=== PATIENT | female | born 1965 | race Caucasian/White ===

== ENCOUNTER 2018-06-03 21:14 | Observation (INO) | payer MEDICAID, SELFPAY ==
--- NOTE | 2018-06-03 21:16 | EKG12_ITS ---
Test Reason : CP Blood Pressure : / mmHG Vent. Rate : 093 BPM Atrial Rate : 093 BPM P-R Int : 134 ms QRS Dur : 086 ms QT Int : 346 ms P-R-T Axes : 066 -17 052 degrees QTc Int : 430 ms Normal sinus rhythm with sinus arrhythmia Septal infarct , age undetermined Abnormal ECG Confirmed by JAMIE GOMEZ, JAIRO ([id number]), scientific editor YOBANI RODARTE ([id number]) on 06/06/2018 1:13:23 PM Referred By: IRVIN Confirmed By:JAIRO AYALA MD
[2018-06-03 21:17] VITALS: BP 199/102; PULSE 111; RESP 18; TEMP 36.7; O2SAT 100; BMI 32.6
--- NOTE | 2018-06-03 21:18 | NURSING ---
NO OLD EKG
--- NOTE | 2018-06-03 21:21 | RAD_ITS ---
STUDY: X-RAY CHEST REASON FOR EXAM: Female, 52 years old. Chest pain. TECHNIQUE: Single AP portable view of the chest. COMPARISON: None. FINDINGS: Critelli The lungs are clear and expanded. There is no demonstrated pleural abnormality. Normal size heart. Normal mediastinum and lexie. Normal visualized pulmonary arteries. Normal visualized aortic arch and descending thoracic aorta. The thoracic spine is obscured by the mediastinum. Normal visualized ribs, clavicles, and shoulders. There is no demonstrated abnormality of the visualized soft tissue structures of the upper abdomen. RAD/Chest 1 View (Portable) IMPRESSION: No acute cardiopulmonary disease. Electronically Signed: Rafael Jones DO at 21:49 EDT Tel [phone], Service support ,
[2018-06-03 21:27] VITALS: PULSE 95; RESP 18; O2SAT 100
[2018-06-03] MEDS: Aspirin 81 MG TAB.CHEW 324 MG PO (21:28)
--- NOTE | 2018-06-03 21:30 | ED.VISSUMM ---
- ER Visit Summary Date of Service: 06/03/18 Chief Complaint: Chest pain History of Present Illness: The patient is a 52 F history of chronic hypertension for which she is never been placed on any medication. Patient states the last several hours she has had fluttering heartbeat with chest pain. She is never had any prior cardiac workup nor any stress test or heart catheterization. She denies recent exertional chest pain. She has had mild shortness of breath. And also nauseated night associated dizziness. No headache. No radiation to her back. Physical Examination: Middle-aged female. No acute distress. Currently pain-free. Blood pressure is elevated 199/102. Pulse ox 100% on room air no hypoxia. Afebrile. H EENT exam unremarkable. No facial droop. Normal speech. Neck nontender. No JVD. Lungs clear to auscultation bilaterally. Heart regular rhythm rate about 95 no murmur. Chest wall minimal tenderness. No ecchymosis or bruising. No subcu air no crepitance. No bony deformity. Abdomen soft nontender. Normal bowel sounds no peritoneal signs. Patient is moving all 4 extremities. Neurovascular intact. 5 out of 5 equal symmetrical vegetable buncher strength. Dorsi plantar flexion intact. Normal motor strength and sensation both upper and lower extremities. Calves nontender without edema nor cords. Back exam nontender. Neurologically she is awake and alert with no focal motor or sensory deficits. NIH is 0. Test Results: CBC normal. BMP unremarkable. Potassium 3.3. Troponin normal. Portable chest x-ray one view shows no acute abnormality. Normal cardiac silhouette. Normal mediastinum and aorta. Read both by myself and the radiologist. EKG is a sinus rhythm. There is some artifact. There is subtle ST depression in the lateral leads. No signs of acute NV. She is pain-free with EKG. Emergency Department Course and Treatment: Patient with acute on chronic hypertension it has been untreated. She also has atypical chest pain. She will undergo cardiac workup. Also received Lopressor IV for her blood pressure. Treatment Plan: Repeat exam patient is doing well at 2300. Pain-free. Her blood pressure is starting to go back up at 170/100 she will be given the complete dose of Lopressor. I will speak to the hospitalist about admission. Disposition: Admission Impression: Acute chest pain uncertain etiology. Acute on chronic hypertension untreated This note was generated with Dragon dictation software. It may contain incorrect words, spelling, and punctuation that were not noted in review of the chart prior to signing ED Disposition - Plan for ED Patient: Chief Complaint: Chest Pain Referrals: Johny Jimenez [Primary Care Provider] -
--- NOTE | 2018-06-03 21:35 | ED.DCSUM_ITS ---
- ER Visit Summary Date of Service: 06/03/18 Chief Complaint: Chest pain History of Present Illness: The patient is a 52 F history of chronic hypertension for which she is never been placed on any medication. Patient states the last several hours she has had fluttering heartbeat with chest pain. She is never had any prior cardiac workup nor any stress test or heart catheterization. She denies recent exertional chest pain. She has had mild shortness of breath. And also nauseated night associated dizziness. No headache. No radiation to her back. Physical Examination: Middle-aged female. No acute distress. Currently pain- free. Blood pressure is elevated 199/102. Pulse ox 100% on room air no hypoxia. Afebrile. H EENT exam unremarkable. No facial droop. Normal speech. Neck nontender. No JVD. Lungs clear to auscultation bilaterally. Heart regular rhythm rate about 95 no murmur. Chest wall minimal tenderness. No ecchymosis or bruising. No subcu air no crepitance. No bony deformity. Abdomen soft nontender. Normal bowel sounds no peritoneal signs. Patient is moving all 4 extremities. Neurovascular intact. 5 out of 5 equal symmetrical aviation program manager strength. Dorsi plantar flexion intact. Normal motor strength and sensation both upper and lower extremities. Calves nontender without edema nor cords. Back exam nontender. Neurologically she is awake and alert with no focal motor or sensory deficits. NIH is 0. Test Results: CBC normal. BMP unremarkable. Potassium 3.3. Troponin normal. Portable chest x-ray one view shows no acute abnormality. Normal cardiac silhouette. Normal mediastinum and aorta. Read both by myself and the radiologist. EKG is a sinus rhythm. There is some artifact. There is subtle ST depression in the lateral leads. No signs of acute NH. She is pain-free with EKG. Emergency Department Course and Treatment: Patient with acute on chronic hypertension it has been untreated. She also has atypical chest pain. She will undergo cardiac workup. Also received Lopressor IV for her blood pressure. Treatment Plan: Repeat exam patient is doing well at 2300. Pain-free. Her blood pressure is starting to go back up at 170/100 she will be given the complete dose of Lopressor. I will speak to the hospitalist about admission. Disposition: Admission Impression: Acute chest pain uncertain etiology. Acute on chronic hypertension untreated This note was generated with Dragon dictation software. It may contain incorrect words, spelling, and punctuation that were not noted in review of the chart prior to signing ED Disposition - Plan for ED Patient: Chief Complaint: Chest Pain Referrals: Johny Jimenez [Primary Care Provider] -
[2018-06-03] MEDS: Metoprolol Tartrate 5 MG/5 ML Vial IV ×2 (21:43→23:21)
[2018-06-03 21:45] VITALS: BP 198/78; PULSE 81; RESP 16; O2SAT 100
[2018-06-03 21:48] LABS: Absolute Lymphocyte Count 1.97 X10^3/ul (0.83-4.51); Absolute Neutrophil Count 4.9 X10^3/uL (2.0-7.7); Basophil# 0.01 X10^3/uL; Basophil% 0.1 % (0-1); Eosinophil# 0.23 X10^3/uL; Hematocrit 46.7 % (37-47); Hemoglobin 15.2 g/dl (12.0-15.0); Lymphocyte # 1.97 X10^3/ul (4.0); Lymphocyte % 25.8 % (19-41); Mean Corp Hgb Conc 32.5 g/gl (32-36); Mean Corpuscular Hgb 27.8 pg (27.0-32.0); Mean Corpuscular Volume 85.5 fL (81-99); Mean Platelet Vol. 10.5 fl (6.2-12.0); Monocyte# 0.51 X10^3/uL; Monocyte% 6.7 % (0-10); Neutrophil % 64.1 % (47-70); Platelet Count 301 K/mm3 (150-450); RBC Distribution Width CV 15.1 % (11.6-14.6); RBC Distribution Width SD 47.5 fl (35.1-43.9); Red Blood Count 5.46 M/mm3 (4.2-5.4); White Blood Count 7.6 K/mm3 (4.4-11.0)
[2018-06-03 21:49] LABS: POSITIVE COUNT NO; POSITIVE DIFFERENTIAL NO; POSITIVE MORPHOLOGY NO
[2018-06-03 22:06] LABS: Anion Gap 8 (5-15); BUN 12 mg/dL (7-18); BUN/Creat Ratio 17.1 RATIO (10-20); Calcium,Total 9.6 mg/dL (8.5-10.1); Chloride 104 mmol/L (98-107); EST Glomerular Filtration Rate 94 mL/min (>60); Est Glom Filt Rate - Afr Amer 113 mL/min (>60); Estimated Creatinine Clearance 96.99 ml/min; Glucose 111 mg/dL (74-106); Potassium 3.3 mmol/L (3.5-5.1); Sodium Level 140 mmol/L (136-145)
[2018-06-03 22:08] VITALS: O2SAT 99
[2018-06-03 22:25] VITALS: BP 154/86; PULSE 67; RESP 16; O2SAT 97
[2018-06-03 23:18] VITALS: BP 174/89; PULSE 71; RESP 16; O2SAT 100
--- NOTE | 2018-06-03 23:25 | EKG12_ITS ---
Test Reason : REPEAT Blood Pressure : / mmHG Vent. Rate : 060 BPM Atrial Rate : 060 BPM P-R Int : 138 ms QRS Dur : 090 ms QT Int : 406 ms P-R-T Axes : 053 -16 040 degrees QTc Int : 406 ms Normal sinus rhythm Septal WA, age undetermined Confirmed by JAMIE GOMEZ, JAIRO ([id number]), non linear editor YOBANI RODARTE ([id number]) on 06/06/2018 1:14:27 PM Referred By: IRVIN Confirmed By:JAIRO AYALA MD
--- NOTE | 2018-06-03 23:48 | HP.PCM_ITS ---
Problem List (1) Hypertensive urgency Status: Acute (2) Chest pain Status: Acute Qualifiers: Chest pain type: unspecified Qualified Code(s): R07.9 - Chest pain, unspecified (3) HTN (hypertension) Status: Chronic Qualifiers: Hypertension type: essential hypertension Qualified Code(s): I10 - Essential (primary) hypertension (4) Obesity Status: Chronic Qualifiers: Obesity type: due to excess calories Obesity classification: adult class 1 (BMI 30 - 34.9) History of Present Illness Date of Admission: 06/03/18 Chief Complaint: Chest pain The patient is a 52 y/o F w/ PMHx: Obesity, HTN not on medications who notes she has not been to see her physician since of her last child who presents to the [facility] ED on 06/03/18 with history of intermittent waxing and waning chest pressure, tightness in the midsternal region radiating toward the middle of her BL shoulder blades as well as her BL neck and jaw region with associated dyspnea and nausea, rated 5-6/10 when onset, lasting minutes, does not appear to improve with rest starting AM of day of presentation. She notes she has had similar presentation in the past; however, she never had radiation to her neck and jaw at that time and she notes her symptoms at that time improved with relaxation. She notes over the weekend she did not have a healthy diet. She has been attempting to eat healthy and has lost 40 lbs since March. In the ED work-up included T 98.1, heart rate 111, BP 199/102, respiratory rate 18, 100% on room air--> BP 154/86 following IV Lopressor x1 with repeat 174/89, CBC with WBC 7.6, hemoglobin 15.2, platelet 301 without shift, BMP with potassium 3.3, glucose 111, troponin less than 0.015, EKG with nonspecific V3 through V6 findings suspected secondary to artifact with repeat EKG pending upon evaluation of patient, chest x-ray with no acute findings. In the ED patient administered IV Lopressor in addition to aspirin 324 mg p.o. x1. Upon ED evaluation patient denied any chest pain and had been chest pain-free since ED presentation. 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 Smoking Status: Never smoker Tobacco Use: Non-smoker Alcohol: None Drugs: None - *Family History Maternal History Items: - - Patient denies any marked maternal or paternal family history including heart disease, diabetes, high cholesterol. She does note a maternal uncle with history of stroke. Paternal History Items: - - Patient denies any marked maternal or paternal family history including heart disease, diabetes, high cholesterol. Review of Systems Constitutional: Reports: Fatigue. Denies: Chills, Fever, Weight Change HEENT: Denies: Head Aches, Sinus Congestion, Sinus Drainage Cardiovascular: Reports: Chest Pain, Chest Pressure, Chest Tightness. Denies: Light Headedness, Orthopnea, Palpitations, Syncope Respiratory: Reports: Shortness of Breath. Denies: Cough, Shortness of breath at rest, Sputum production Gastrointestinal: Reports: Nausea. Denies: Abdominal Pain, Vomiting Genitourinary: Denies: Dysuria Musculoskeletal: Denies: Joint Pain, Joint Tenderness Skin: Denies: Rash, Wounds Neurological: Denies: Numbness, Tingling, Focal weakness Psychiatric: Denies: Anxiety, Depression, Homicidal Ideations, Suicidal Ideations Hematologic/ Lymphatic: Denies: Easy Bruising, Easy Bleeding VTE Information - Inpt Only VTE Present on Admission: No VTE Mechan Device Prophylaxis: SCD's VTE Pharm Prophylaxis ordered?: Yes Patient Problems: Active and Suspected Problems Chest pain (Acute) Hypertensive urgency (Acute) Subjective: Seated upright in ED bed, no acute distress, denies current chest discomfort. Objective: Physical Examination: General: awake, alert, oriented x 3 and cooperative, seated upright in the ED bed in no apparent distress. Skin: normal color, turgor, no icterus, cyanosis. HEENT: AT/NC, EOMI, PERRLA, MMM, no carotid bruits or JVD noted. Lungs: CTA bilaterally, moderate effort, mild decrease BL bases, no rales, ronchi or wheezing. Heart: Regular rate and rhythm; no gallop, rub audible. Abdomen: soft, obese, NTTP, ND, normal BS, no HSM. Extremities: no cyanosis, clubbing, or edema. Neurological: patient awake, alert, oriented x 3; cognitive function intact; pupils equally reactive to light and accomodation; cranial nerves II-XII grossly normal, moving all 4 extremities, no focal deficits, strength preserved. Psychiatric: affect appears normal, no acute evidence of depressive or anxiety feelings. - Physical Exam Vital Signs Temp Pulse Resp BP Pulse Ox 98.1 F 71 16 174/89 H 100 06/03/18 21:17 06/03/18 23:18 06/03/18 23:18 06/03/18 23:18 06/03/18 23:18 Oxygen Delivery Method Room Air Weight: 214 lb 11.684 oz Body Mass Index (BMI) 32.6 Laboratory Tests Past 24 Hrs 06/03/18 06/03/18 21:37 21:37 WBC 7.6 RBC 5.46 H Hgb 15.2 H Hct 46.7 MCV 85.5 MCH 27.8 MCHC 32.5 RDW 15.1 H RDW Differential 47.5 H Plt Count 301 MPV 10.5 Immature Gran % (Auto) 0.300 Neut % (Auto) 64.1 Lymph % (Auto) 25.8 Calvert % (Auto) 6.7 Eos % (Auto) 3.0 Baso % (Auto) 0.1 Absolute Neuts (auto) 4.9 Absolute Lymphs (auto) 1.97 Total Counted Not Reportable Sodium 140 Potassium 3.3 L Chloride 104 Carbon Dioxide 28.0 Anion Gap 8 BUN 12 Creatinine 0.70 Estim Creat Clear Calc 96.99 Est GFR (MDRD) Af Amer 113 Est GFR (MDRD) Non-Af 94 BUN/Creatinine Ratio 17.1 Glucose 111 H Calcium 9.6 Troponin I < 0.015 Assessment/Plan All Active Problems Chest pain (Acute) Hypertensive urgency (Acute) The patient is a 52 y/o F w/ PMHx: Obesity, HTN not on medications who notes she has not been to see her physician since of her last child who presents to the [facility] ED on 06/03/18 with history of intermittent waxing and waning chest pressure. (1) Chest Pain: EKG in ED nonspecific findings V4 through V6 with repeat EKG pending as suspected artifact, CXR w/ no acute process, initial trop > 0.015. Will admit to PCU, place on a monitored bed to assure no acute myocardial infarction with serial cardiac enzymes and EKGs. Given atypical ST-T changes on EKG although repeat pending and suspected artifact, to be cautious will obtain nuclear treadmill if enzymes remain appropriate. If elevate will discontinue and consult Cardiology. As noted #2, initiating BP regimen. ASA, NG, morphine. FLP in AM w/ statin initiated. Mag pending. (2) Hypertensive Urgency: Notably elevated BP upon presentation, uncontrolled for likely years, no recent PCP evaluations, will initiate on ACEI-HCTZ regimen, monitor BP and further add as needed or increase, PRN hydralazine. (3) Hypokalemia: Admission K+ 3.3, supplementation given, repeat level in AM. Mag pending. (4) Obesity: Weight loss and lifestyle changes encouraged, nutrition consulted. (5) DVT Prophylaxis: SCDs, lovenox. Code Visit OBSV E&M: 13385 Initial observation care L3
[2018-06-04] VITALS (12 sets, daily range): BP systolic 124–165; BP diastolic 72–105; PULSE 66–85; RESP 16; TEMP 36.4–36.7; O2SAT 97–99; BMI 31.3
[2018-06-04] MEDS: hydroCHLOROthiazide 12.5mg 12.5 MG PO (00:51)
[2018-06-04] MEDS: Lisinopril 10 MG Tablet PO ×2 (00:51→02:20)
[2018-06-04] MEDS: 0.9% Normal Saline 1,000 ML 100 ML IV (00:53)
[2018-06-04 01:04] LABS: Magnesium 2.3 mg/dL (1.6-2.6)
[2018-06-04 03:53] LABS: Absolute Lymphocyte Count 1.56 X10^3/ul (0.83-4.51); Absolute Neutrophil Count 4.7 X10^3/uL (2.0-7.7); Basophil# 0.02 X10^3/uL; Basophil% 0.3 % (0-1); Eosinophil# 0.17 X10^3/uL; Eosinophils% 2.5 % (0-5); Hematocrit 42.9 % (37-47); Hemoglobin 14.1 g/dl (12.0-15.0); Lymphocyte # 1.56 X10^3/ul (4.0); Lymphocyte % 22.8 % (19-41); Mean Corp Hgb Conc 32.9 g/gl (32-36); Mean Corpuscular Volume 85.3 fL (81-99); Mean Platelet Vol. 10.6 fl (6.2-12.0); Monocyte# 0.38 X10^3/uL; Monocyte% 5.6 % (0-10); Neutrophil % 68.7 % (47-70); Platelet Count 267 K/mm3 (150-450); Red Blood Count 5.03 M/mm3 (4.2-5.4); White Blood Count 6.8 K/mm3 (4.4-11.0)
[2018-06-04 03:56] LABS: POSITIVE COUNT NO; POSITIVE DIFFERENTIAL NO; POSITIVE MORPHOLOGY NO
[2018-06-04 03:57] LABS: Prothrombin Time (Protime)PT. 13.1 SECONDS (11.7-14.9)
[2018-06-04 03:58] LABS: Partial Thromboplast Time 27.6 Seconds (24.1-36.2)
[2018-06-04 04:08] LABS: Anion Gap 8 (5-15); BUN 9 mg/dL (7-18); BUN/Creat Ratio 15.9 RATIO (10-20); Chloride 109 mmol/L (98-107); Cholesterol 167 mg/dL (200); Creatinine, Serum 0.56 mg/dL (0.55-1.02); EST Glomerular Filtration Rate 120 mL/min (>60); Est Glom Filt Rate - Afr Amer 145 mL/min (>60); Estimated Creatinine Clearance 121.24 ml/min; Glucose 94 mg/dL (74-106); High Density Lipoprotein 52 mg/dL; Potassium 3.7 mmol/L (3.5-5.1); Sodium Level 142 mmol/L (136-145); Triglycerides 78 mg/dL; Very Low Density Lipoprotein 16 mg/dL (5-40)
--- NOTE | 2018-06-04 05:55 | EKG12_ITS ---
Test Reason : ADMISSION EKG Blood Pressure : / mmHG Vent. Rate : 062 BPM Atrial Rate : 062 BPM P-R Int : 138 ms QRS Dur : 088 ms QT Int : 426 ms P-R-T Axes : 056 -15 035 degrees QTc Int : 432 ms Normal sinus rhythm Possible Left atrial enlargement Borderline ECG When compared with ECG of 03-JUN-2018 23:45, MANUAL COMPARISON REQUIRED, DATA IS UNCONFIRMED Confirmed by TAI VILLALTA ([id number]), department editor YOBANI RODARTE ([id number]) on 06/10/2018 11:37:56 AM Referred By: RAFAL Confirmed By:TAI VILLALTA
[2018-06-04] MEDS: Aspirin E.C. 81 MG Tablet PO (06:06)
--- NOTE | 2018-06-04 08:21 | STRESSREP ---
Stress Test Report Date: 06/04/2018 Procedure: Exercise tolerance test/imaging study Indications: Chest pain Consent: Per the patient Procedure: The patient exercised on a Codey protocol for 6 minutes and 30 seconds completing Stage II and 30 seconds of Stage III achieving a peak heart rate of 176 bpm (103 % predicted maximal heart rate) with a peak blood pressure 184/112 mmHg and a peak MET capacity of 7 METs. The baseline ECG demonstrated normal sinus rhythm. The peak exercise ECG demonstrated somatic/motion artifact with no obvious ECG changes. There was an occasional PVC during recovery. The functional capacity was considered average. There was no complaint of chest discomfort during exercise or recovery. The examination was discontinued secondary to fatigue. Impression: 1. Technically adequate (percent predicted maximal heart rate greater than 85%) exercise tolerance test 2. Peak exercise ECG with somatic/motion artifact with no obvious ECG changes 3. There was an occasional PVC during recovery 4. Nuclear images pending Myocardial perfusion imaging study: Technique: The patient was injected with 14.1 mCi of technetium 99m Cardiolite and subsequently rest SPECT Cardiolite nuclear imaging was obtained in the horizontal long, vertical long, and short axis views. The patient exercised on a Codey protocol for 6 minutes and 30 seconds completing Stage II and 30 seconds of Stage III achieving a peak heart rate of 176 bpm (103 % predicted maximal heart rate) with a peak blood pressure 184/112 mmHg and a peak MET capacity of 7 METs. The patient was injected with 44.1 mCi of technetium 99m Cardiolite and subsequently stress SPECT Cardiolite nuclear imaging was obtained in the horizontal long, vertical long, and short axis views. A gated Cardiolite study at peak stress was obtained. Interpretation: Rest and stress SPECT Cardiolite nuclear imaging status post realignment, normalization, and attenuation correction, demonstrates the appearance of relative uniform tracer uptake and myocardial perfusion appearing within normal limits. There is end systolic thickening and brightening. The gated Cardiolite study demonstrates myocardial thickening and inward wall motion. The reported LVEF is 76 %. Impression: 1. Rest and stress SPECT Cardiolite nuclear imaging demonstrate relative uniform tracer uptake and myocardial perfusion appearing within normal limits. 2. The gated Cardiolite study reports an LVEF of 76%. This note was generated with [employer] software. It may contain incorrect words, spelling, and punctuation that were not noted in checking the note before signing.
[2018-06-04] MEDS: 0.9% NaCl Peripheral Flush Adult/Peds IV (09:03)
--- NOTE | 2018-06-04 15:16 | PCM.DC ---
- Discharge Diagnoses Current Active Problems: Current Active and Chronic Problems HTN (hypertension) (Chronic) Obesity (Chronic) Chest pain (Acute) Hypertensive urgency (Acute) You will use the following diet at home:: No restrictions Your food should be the consistency of: Regular Discharge Activity: Return to Normal Activity Call your doctor if you observe: Shortness of breath, Dizziness, Chest pain Allergies/Adverse Reactions: Allergies No Known Allergies Allergy (Verified 06/03/18 21:30) Medications to take at Discharge Lisinopril [Zestril] 20 mg PO DAILY #30 tablet 06/04/18 The following prescriptions were given: Lisinopril [Zestril] 20 mg PO DAILY #30 tablet Primary Care Physician: Johny Jimenez [Primary Care Provider] - Test Results: Will need labs checked in 1-2 weeks, started on LAUREANO-I Test results from this visit will be discussed in further detail at your follow-up appointment, if applicable. Proposed Discharge Date: 06/04/18
--- NOTE | 2018-06-04 15:19 | DCINST_ITS ---
- Discharge Diagnoses Current Active Problems: Current Active and Chronic Problems HTN (hypertension) (Chronic) Obesity (Chronic) Chest pain (Acute) Hypertensive urgency (Acute) You will use the following diet at home:: No restrictions Your food should be the consistency of: Regular Discharge Activity: Return to Normal Activity Call your doctor if you observe: Shortness of breath, Dizziness, Chest pain Allergies/Adverse Reactions: Allergies No Known Allergies Allergy (Verified 06/03/18 21:30) Medications to take at Discharge Lisinopril [Zestril] 20 mg PO DAILY #30 tablet 06/04/18 The following prescriptions were given: Lisinopril [Zestril] 20 mg PO DAILY #30 tablet Primary Care Physician: Johny Jimenez [Primary Care Provider] - Test Results: Will need labs checked in 1-2 weeks, started on LAUREANO-I Test results from this visit will be discussed in further detail at your follow- up appointment, if applicable. Proposed Discharge Date: 06/04/18
--- NOTE | 2018-06-04 15:19 | PCM.DC.SUM ---
Discharge Date and Diagnosis - Problem List Patient Problems: Active and Suspected Problems Chest pain (Acute) Hypertensive urgency (Acute) Date of Admission: 06/03/18 Date of Discharge: 06/04/18 - Primary Discharge Diagnosis Active and Suspected Problems Chest pain (Acute) Hypertensive urgency (Acute) - Secondary Discharge Diagnosis Chronic Problems HTN (hypertension) (Chronic) Obesity (Chronic) Hospital Course and Treatment Operations: None Procedures: Stress test Summary of Care Provided: The patient is a 52 year old F with a remote history of hypertension (has stopped prior antihypertensive meds) who was admitted for chest pain. Patient was noted to have uncontrolled hypertension with systolic blood pressures in the 170s. Patient was started on antihypertensive agents and cardiac enzymes and EKGs were done. Patient's enzymes and EKGs were unremarkable. She underwent a stress test which showed no evidence of reversible ischemia. Patient had no further episodes of chest pain. It was felt that patient's chest pain was likely related to hypertensive urgency. Blood pressure had improved following addition of lisinopril. Lipid panel was unremarkable, requiring no initiation of statin therapy. Patient was otherwise doing well with stable and ready for discharge and had met maximal hospital benefit. She will be discharged home on lisinopril and will follow up with her PCP in 1-2 weeks (will need BMP checked, starting LAUREANO inhibitor). Patient Problems: Active and Suspected Problems Chest pain (Acute) Hypertensive urgency (Acute) - Physical Exam General: Alert, Oriented x3, Cooperative HEENT: Atraumatic, Normocephalic Neck: Supple Lungs: Clear to auscultation, Normal air movement Cardiovascular: Regular rate, No murmurs Abdomen: Bowel Sounds Present, Soft, Non Tender Extremities: No edema, Capillary Refill Less than 3 Seconds Skin: No rashes, No breakdown Musculoskeletal: No Tenderness to Palpation of Joints or Extremities Neurological: Cranial nerves II-XII grossly intact Psych/Mental Status: Normal Affect, Appropriate Vital Signs Temp Pulse Resp BP Pulse Ox 97.8 F 70 16 135/95 H 98 06/04/18 08:48 06/04/18 11:25 06/04/18 08:48 06/04/18 08:48 06/04/18 08:48 Oxygen Delivery Method Room Air Weight: 93.4 kg Body Mass Index (BMI) 31.3 Intake and Output for Last 24 Hours 06/02/18 06/03/18 06/04/18 23:59 23:59 23:59 Intake Total 1461 / 1461 Balance 1461 / 1461 Laboratory Tests Past 24 Hrs 06/03/18 06/03/18 06/03/18 21:37 21:37 21:37 WBC 7.6 RBC 5.46 H Hgb 15.2 H Hct 46.7 MCV 85.5 MCH 27.8 MCHC 32.5 RDW 15.1 H RDW Differential 47.5 H Plt Count 301 MPV 10.5 Immature Gran % (Auto) 0.300 Neut % (Auto) 64.1 Lymph % (Auto) 25.8 Prairie % (Auto) 6.7 Eos % (Auto) 3.0 Baso % (Auto) 0.1 Absolute Neuts (auto) 4.9 Absolute Lymphs (auto) 1.97 Total Counted Not Reportable PT INR APTT Sodium 140 Potassium 3.3 L Chloride 104 Carbon Dioxide 28.0 Anion Gap 8 BUN 12 Creatinine 0.70 Estim Creat Clear Calc 96.99 Est GFR (MDRD) Af Amer 113 Est GFR (MDRD) Non-Af 94 BUN/Creatinine Ratio 17.1 Glucose 111 H Calcium 9.6 Magnesium 2.3 Troponin I < 0.015 Triglycerides Cholesterol LDL Cholesterol VLDL Cholesterol HDL Cholesterol 06/04/18 06/04/18 06/04/18 01:02 03:34 03:34 WBC RBC Hgb Hct MCV MCH MCHC RDW RDW Differential Plt Count MPV Immature Gran % (Auto) Neut % (Auto) Lymph % (Auto) Prairie % (Auto) Eos % (Auto) Baso % (Auto) Absolute Neuts (auto) Absolute Lymphs (auto) Total Counted PT INR APTT Sodium 142 Potassium 3.7 Chloride 109 H Carbon Dioxide 25.0 Anion Gap 8 BUN 9 Creatinine 0.56 Estim Creat Clear Calc 121.24 Est GFR (MDRD) Af Amer 145 Est GFR (MDRD) Non-Af 120 BUN/Creatinine Ratio 15.9 Glucose 94 Calcium 9.0 Magnesium Troponin I < 0.015 < 0.015 Triglycerides 78 Cholesterol 167 LDL Cholesterol 99 VLDL Cholesterol 16 HDL Cholesterol 52 06/04/18 06/04/18 03:34 03:34 WBC 6.8 RBC 5.03 Hgb 14.1 Hct 42.9 MCV 85.3 MCH 28.0 MCHC 32.9 RDW 15.0 H RDW Differential 47.0 H Plt Count 267 MPV 10.6 Immature Gran % (Auto) 0.100 Neut % (Auto) 68.7 Lymph % (Auto) 22.8 Prairie % (Auto) 5.6 Eos % (Auto) 2.5 Baso % (Auto) 0.3 Absolute Neuts (auto) 4.7 Absolute Lymphs (auto) 1.56 Total Counted Not Reportable PT 13.1 INR 1.0 APTT 27.6 Sodium Potassium Chloride Carbon Dioxide Anion Gap BUN Creatinine Estim Creat Clear Calc Est GFR (MDRD) Af Amer Est GFR (MDRD) Non-Af BUN/Creatinine Ratio Glucose Calcium Magnesium Troponin I Triglycerides Cholesterol LDL Cholesterol VLDL Cholesterol HDL Cholesterol Discharge Diet: No Restrictions Discharge Activity: Return to Normal Activity Call your doctor if you observe: Shortness of breath, Dizziness, Chest pain Home Medications: Medications to take at Discharge Lisinopril [Zestril] 20 mg PO DAILY #30 tablet 06/04/18 Following Prescrptions Were Given to Patient: Lisinopril [Zestril] 20 mg PO DAILY #30 tablet Primary Care Physician: Johny Jimenez [Primary Care Provider] - Medical Necessity - Tobacco Use Smoking Status: Never smoker Tobacco Use: Non-smoker Meaningful Use Info Meaningful Use Diagnoses (Choose all that apply): None applicable Code Visit Inpatient E&M: 67504 Disch Hosp
== END 2018-06-04 15:17 | disposition home or self-care (01) ==
LOC: ED 21:48 → PCU 23:32
PROVIDERS: Admitting Provider Family Medicine; Emergency Provider Emergency Medicine; Family Provider Family Medicine; PCP Family Medicine; Visit Provider Family Medicine
DX: R07.89 Other chest pain (principal); I10 Essential (primary) hypertension; R06.02 Shortness of breath; R42 Dizziness and giddiness; I16.0 Hypertensive urgency; E66.9 Obesity, unspecified; Z68.31 Body mass index [BMI] 31.0-31.9, adult; Z71.3 Dietary counseling and surveillance; E87.6 Hypokalemia
CPT/HCPCS: 36415; 71045; 78452; 80048; 80061; 83735; 84484; 85025; 85610; 85730; 93005; 93017; 96361; 96374; 96376; 97802; 99218; 99284; A9500; J7030; A4216; C1751; G0378

== ENCOUNTER 2018-07-22 19:59 | Emergency (ER) | payer MEDICAID, SELFPAY ==
[2018-07-22 20:00] VITALS: BP 183/118; PULSE 89; RESP 16; TEMP 35.8; O2SAT 100
--- NOTE | 2018-07-22 20:34 | EKG12_ITS ---
Test Reason : CHEST OTHER Blood Pressure : / mmHG Vent. Rate : 070 BPM Atrial Rate : 070 BPM P-R Int : 132 ms QRS Dur : 088 ms QT Int : 386 ms P-R-T Axes : 046 -14 061 degrees QTc Int : 416 ms Normal sinus rhythm Normal ECG Confirmed by QIAN GOMEZ, ROGER ([id number]), editor city YOBANI RODARTE ([id number] on 07/25/2018 9:07:24 AM Referred By: QUANG Confirmed By:ROGER LAUGHLIN MD
[2018-07-22 20:37] VITALS: PULSE 77; RESP 18; O2SAT 100
[2018-07-22 20:40] VITALS: BP 157/102
--- NOTE | 2018-07-22 20:55 | RAD_ITS ---
STUDY: X-RAY - UNILATERAL RIBS ( RIGHT ) WITH CHEST REASON FOR EXAM: Female, 53 years old. Pain TECHNIQUE - RIBS: 4 view(s) of the ribs. TECHNIQUE - CHEST: PA COMPARISON: None. FINDINGS - RIBS: Normal visualized ribs without a demonstrated fracture. FINDINGS - CHEST: There is discoid atelectasis or scarring in the right lower lobe.. There is no demonstrated pleural abnormality. Normal size heart. Normal mediastinum and lexie. Normal visualized pulmonary arteries. Normal visualized aortic arch and descending thoracic aorta. Normal visualized thoracic spine. Normal visualized ribs, clavicles, and shoulders. There is no demonstrated abnormality of the visualized soft tissue structures of the upper abdomen. RAD/Ribs Uni Min 3V w/PA Chest IMPRESSION: RIBS: Normal x-ray examination of the ribs. CHEST: Minor discoid atelectasis or scarring at the right lung base. Electronically Signed: Vignesh Noe MD at 21:37 EST , Service support ,
[2018-07-22 20:57] LABS: Absolute Lymphocyte Count 1.52 X10^3/ul (0.83-4.51); Absolute Neutrophil Count 5.6 X10^3/uL (2.0-7.7); Basophil# 0.02 X10^3/uL; Basophil% 0.3 % (0-1); Eosinophil# 0.18 X10^3/uL; Eosinophils% 2.4 % (0-5); Hematocrit 43.3 % (37-47); Hemoglobin 14.1 g/dl (12.0-15.0); Lymphocyte # 1.52 X10^3/ul (4.0); Lymphocyte % 19.9 % (19-41); Mean Corp Hgb Conc 32.6 g/gl (32-36); Mean Corpuscular Hgb 28.3 pg (27.0-32.0); Mean Corpuscular Volume 86.9 fL (81-99); Mean Platelet Vol. 9.6 fl (6.2-12.0); Monocyte# 0.31 X10^3/uL; Monocyte% 4.1 % (0-10); Neutrophil # 5.59 X10^3/uL (2.7-7.7); Neutrophil % 73.2 % (47-70); POSITIVE COUNT NO; POSITIVE DIFFERENTIAL NO; POSITIVE MORPHOLOGY NO; Platelet Count 303 K/mm3 (150-450); RBC Distribution Width CV 15.4 % (11.6-14.6); RBC Distribution Width SD 49.1 fl (35.1-43.9); Red Blood Count 4.98 M/mm3 (4.2-5.4); White Blood Count 7.6 K/mm3 (4.4-11.0)
[2018-07-22 21:10] LABS: Anion Gap 5 (5-15); BUN 23 mg/dL (7-18); BUN/Creat Ratio 24.4 RATIO (10-20); Calcium,Total 9.1 mg/dL (8.5-10.1); Chloride 106 mmol/L (98-107); Creatinine, Serum 0.94 mg/dL (0.55-1.02); EST Glomerular Filtration Rate 67 mL/min (>60); Est Glom Filt Rate - Afr Amer 81 mL/min (>60); Estimated Creatinine Clearance 71.42 ml/min; Glucose 104 mg/dL (74-106); Potassium 3.6 mmol/L (3.5-5.1); Sodium Level 140 mmol/L (136-145)
--- NOTE | 2018-07-22 22:20 | ED.DCSUM_ITS ---
- ER Visit Summary Date of Service: 07/22/18 Chief Complaint: Chest pain History of Present Illness: The patient is a 53 F presenting for evaluation secondary chest pain. Patient reports that since yesterday she has been getting intermittent shooting pains in her right lower chest. States this was not ass ociated with any sort of injury. She reports that it is not this early worse with exertion, but will come and go intermittently and sometimes associated with different positions and movement. Patient states that the pain is worse both with palpation and breathing as well. She denies being short of breath. She denies any nausea diaphoresis or lightheadedness. She is never had any prior similar episodes in the past. Patient's only cardiovascular risk factor is hypertension, and she denies any PE risk factors. Physical Examination: Vital signs are within normal limits, patient is afebrile. General: Patient is well-nourished well-developed and in no acute distress. Head: Normocephalic, atraumatic Eyes: Pupils equal round and reactive bilaterally, extra occular motion intact bialterally ENT: Moist mucous membranes Neck: Supple, no lymphadenopathy, no JVD, no meningismus CVS: Heart regular rate and rhythm, no murmurs, rubs or gallops, radial pulses 2+ bilaterally Resp: Respirations nondistressed, lung sounds clear bilaterally, minimal tenderness to palpation of the right anterior chest Abdomen: Soft, nontender, nondistended, no palpable masses, normal bowel sounds Back: Nontender Extremities: Nontender, atraumatic, active full range of motion, no peripheral edema Skin: warm, no rashes, no petechia Neuro: Alert and oriented x 4, CN 2-12 intact, no lateralizing neurological defecits Psyc: Normal affect Test Results: EKG demonstrates sinus rhythm of [address] segments and normal T waves. CBC chemistry troponin unremarkable. PA lateral chest x- ray per radiology shows some minimal basilar scarring in the right base, but no evidence of acute pathology. Emergency Department Course and Treatment: Patient presented for evaluation secondary to chest pain. Her pain seems rather atypical for something cardiac, and she is PERC negative. Her workup as noted above is negative. Her heart score is 1. I believe she safely can discharge. She will follow-up with primary care. Disposition: Discharge Impression: 1. Chest wall pain This note was generated with [employer] dictation software. It may contain incorrect words, spelling, and punctuation that were not noted in review of the chart prior to signing ED Disposition - Plan for ED Patient: Disposition: Home or Assisted Living Chief Complaint: Chest Other Diagnosis: Chest wall pain Instructions: ED Strain Chest Wall Referrals: Johny Jimenez [Primary Care Provider] - 3-5 Days if not improving
[2018-07-22 22:34] VITALS: BP 150/89; PULSE 69; RESP 14; O2SAT 100
--- NOTE | 2018-07-22 22:34 | ED.RN ---
pt educated on written and verbal discharge instructions. pt verbalizes understanding and denies any further questions. i/v d/c and covered with 2x2 gauze. angio intact. pt dresses self and ambulates out of dept alnoe without assitance needed from staff.
--- OUTSIDE RECORDS SUMMARY | 2018-09-08 00:19 | XMS RPT_ITS ---
:1965 Author Organization OHIP Care Team Providers Name Role Phone Johny Jimenez Primary Care Unavailable Deniz Jauregui Attending Unavailable Johny Jimenez Primary Care Unavailable Edinson Rivas Attending Unavailable Johny Jimenez Primary Care Unavailable White, July Admitting Unavailable [place], Rsoy Attending Unavailable White, July Admitting Unavailable White, July Attending Unavailable Johny Jimenez Primary Care Unavailable White, July Consulting Unavailable White, July Admitting Unavailable [place], Rosy Attending Unavailable Johny Jimenez Primary Care Unavailable [place], Rosy Consulting Unavailable Johny Jimenez Primary Care Unavailable Brad Vega Attending Unavailable Jeovany Ayala Attending Unavailable White, July Referring Unavailable PROBLEMS PROBLEMS DATE TYPE CONDITION / CODE ATTENDING STATUS SOURCE 06/23/2018 Unknown R07.9 - Chest Jeovany Ayala Active Barrera pain, unspecified Community / R07.9(ICD-10) Hospital Repository PROCEDURES PROCEDURES No Procedure Records FoundRESULTS RESULTS Observed: 08/14/2018 Status: F Source: [place] URINE CULTURE 8:42 PM [facility] REPOSITORY Sp. Request/Comment: - Specimen received in preservative Culture Result - No growth (<1,000 CFU/ml) Performed By: #### URCUL #### [facility] [address] [place], [place] [address] CNOV Observed: 08/14/2018 Status: COMPLETED Source: [place] 8:15 PM [facility] REPOSITORY Office Visit (UCWSTR) NAZARIO GE ([id number]) 1965 F Date Time Provider Department 08/14/18 8:15 PM BELIA BERRIOS (GIOVANNI) WSTR During your visit today, we recorded the following information about you: Pulse Respiration Weight 76/minute 16/minute 90.2 kg Belia Berrios APRN.CNP 08/14/2018 8:56 PM Signed Subjective HPI HPI Nazario Ge is a 53 year old female who presents today for suture removal from left thumb. Denies redness, swelling, exudates. Patient has been having urinary frequency, breast tenderness, and food cravings for past week. Patient concerned for . Has not had period for over 1.5 years. Denies urinary burning. .Patient presents with: Suture Removal: 2 on inner thumb of LEFT hand No past medical history on file. No past surgical history on file. ALLERGIES Patient has no known allergies. MEDICATIONS No prescriptions on file. No family history on file. Social History Substance Use Topics - Smoking status: Never Smoker - Smokeless tobacco: Never Used - Alcohol use Not on file Review of Systems Constitutional: Negative for chills, fever and weight loss. Respiratory: Negative for cough, shortness of breath and wheezing. Cardiovascular: Negative for chest pain and palpitations. Gastrointestinal: Negative for abdominal pain, blood in stool, constipation, diarrhea, heartburn, melena, nausea and vomiting. Genitourinary: Positive for dysuria, frequency and urgency. Negative for flank pain and hematuria. Objective Pulse 76, resp. rate 16, weight 90.2 kg (198 lb 12.8 oz). Physical Exam Constitutional: She is well-developed, well-nourished, and in no distress. Non-toxic appearance. She does not have a sickly appearance. No distress. Cardiovascular: Normal rate, regular rhythm and normal heart sounds. Pulmonary/Chest: Effort normal and breath sounds normal. Abdominal: Soft. Normal appearance and bowel sounds are normal. There is no hepatosplenomegaly. There is no tenderness. There is no CVA tenderness. Musculoskeletal: Hands: Skin: Skin is warm and dry. ASSESSMENT/PLAN: 1. Urinary frequency - ICD9: 788.41, ICD10: R35.0 (primary diagnosis) Acute UA negative - Send urine for culture F/u with pcp or obgyn for concerns, do not suspect, has been in menopause for 1.5 years - Patient education for prevention given - URINE CULTURE - HCG QUAL UR B/O 2. Visit for suture removal - ICD9: V58.32, ICD10: Z48.02 Keep clean/covered Follow up if signs of infection occur Prescription instructions reviewed with patient as applicable. Patient advised if symptoms do not improve or if symptoms worsen sooner, to contact the office for further evaluation by their primary care physician. Potential red flag symptoms discussed with the patient. Reviewed appropriate action plan to take if red flag symptoms occur. Patient agreeable to treatment plan. Belia Berrios APRN.GIOVANNI Berrios APRN.GIOVANNI 08/14/2018 8:34 PM Addendum URINARY TRACT INFECTION GENERAL INFORMATION: A urinary tract infection (UTI) is an infection of the bladder or kidneys. A bladder infection, called cystitis, is the more common type. If the infection travels up to the kidneys, it is called pyelonephritis. This can be more serious. UTIs are a common problem in women. Having sexual relations can leave a woman more susceptible to developing a UTI, but it is not sexually transmitted like gonorrhea. Some women have a problem with recurrent UTIs. INSTRUCTIONS: 1. Your doctor prescribed an antibiotic to treat the UTI. Take exactly as directed. Be sure to take all the medication prescribed, even if your symptoms disappear. If you stop treatment early, the infection may not be fully treated and the symptoms could come back again. 2. Get plenty of rest. You may take acetaminophen for fever and aches. 3. Drink 6 to 8 glasses of fluids, especially water, every day. This helps wash out germs from your urinary tract. Cranberry juice or other sources of vitamin C are also good for you. 4. Urinate often, as soon as you feel the urge. Empty your bladder completely. Urinate before and after you have sex. 5. Always wipe from front to back after going to the bathroom. This pushes germs away from your bladder, rather than towards it. 6. Showers are better than baths, and you should wash the genital area daily. Avoid bubble bath or bath oils if you do take a bath. 7. Wear underwear and pantyhose with a cotton crotch. CONTACT YOUR DOCTOR: 1. You have a temperature over 102F (38.8C) after 48 hours on medication. 2. You notice blood in your urine. 3. Your symptoms don't improve in 2 days. 4. You develop nausea, vomiting, diarrhea, or a rash. 5. You develop new or unexplained symptoms. These may be related to the medication you are taking. 6. Your symptoms return after you finish treatment. RETURN TO THE EMERGENCY DEPARTMENT IF: You develop vomiting and can't keep your medication or fluids down. ASSESSMENT/PLAN: 1. Urinary frequency - ICD9: 788.41, ICD10: R35.0 (primary diagnosis) acute - Send urine for culture - Patient education for prevention given 2. Visit for suture removal - ICD9: V58.32, ICD10: Z48.02 Keep clean/covered Follow up if signs of infection occur Referring Provider: SELF [[id number]] Allergies As of Date: 08/14/2018 (No Known Allergies) Date Reviewed: 08/14/2018 Reviewed by: Belia (Shena Berrios - Fully Assessed Reason for Visit: Suture Removal [105] Cmt: 2 on inner thumb of LEFT hand Primary Visit Diagnosis:Urinary frequency [R35.0] Other Visit Diagnosis:Visit for suture removal [Z48.02] Order(s):UA DIP, URINE (POC) [2719417] Order #: [id number] #:[id number] URINE CULTURE [SQURCUL] Order #: [id number] HCG QUAL UR B/O [3089402] Order #: [id number] Problem List As Of Date: 08/14/2018 (None) Other instructions from your clinician: URINARY TRACT INFECTION GENERAL INFORMATION: A urinary tract infection (UTI) is an infection of the bladder or kidneys. A bladder infection, called cystitis, is the more common type. If the infection travels up to the kidneys, it is called pyelonephritis. This can be more serious. UTIs are a common problem in women. Having sexual relations can leave a woman more susceptible to developing a UTI, but it is not sexually transmitted like gonorrhea. Some women have a problem with recurrent UTIs. INSTRUCTIONS: 1. Your doctor prescribed an antibiotic to treat the UTI. Take exactly as directed. Be sure to take all the medication prescribed, even if your symptoms disappear. If you stop treatment early, the infection may not be fully treated and the symptoms could come back again. 2. Get plenty of rest. You may take acetaminophen for fever and aches. 3. Drink 6 to 8 glasses of fluids, especially water, every day. This helps wash out germs from your urinary tract. Cranberry juice or other sources of vitamin C are also good for you. 4. Urinate often, as soon as you feel the urge. Empty your bladder completely. Urinate before and after you have sex. 5. Always wipe from front to back after going to the bathroom. This pushes germs away from your bladder, rather than towards it. 6. Showers are better than baths, and you should wash the genital area daily. Avoid bubble bath or bath oils if you do take a bath. 7. Wear underwear and pantyhose with a cotton crotch. CONTACT YOUR DOCTOR: 1. You have a temperature over 102F (38.8C) after 48 hours on medication. 2. You notice blood in your urine. 3. Your symptoms don't improve in 2 days. 4. You develop nausea, vomiting, diarrhea, or a rash. 5. You develop new or unexplained symptoms. These may be related to the medication you are taking. 6. Your symptoms return after you finish treatment. RETURN TO THE EMERGENCY DEPARTMENT IF: You develop vomiting and can't keep your medication or fluids down. ASSESSMENT/PLAN: 1. Urinary frequency - ICD9: 788.41, ICD10: R35.0 (primary diagnosis) acute - Send urine for culture - Patient education for prevention given 2. Visit for suture removal - ICD9: V58.32, ICD10: Z48.02 Keep clean/covered Follow up if signs of infection occur Encounter Status:Closed by BELIA BERRIOS CNP on 08/14/18 PROGRESS Observed: 08/14/2018 Status: COMPLETED Source: [place] 8:10 PM [facility] REPOSITORY HNO ID: [id number] Author: Belia (Giovanni) Service: (none) Author Type: Nurse Practitioner Type: Progress Notes Filed: 08/14/2018 8:56 PM Note Text: Subjective HPI HPI Nazario Ge is a 53 year old female who presents today for suture removal from left thumb. Denies redness, swelling, exudates. Patient has been having urinary frequency, breast tenderness, and food cravings for past week. Patient concerned for . Has not had period for over 1.5 years. Denies urinary burning. .Patient presents with: Suture Removal: 2 on inner thumb of LEFT hand No past medical history on file. No past surgical history on file. ALLERGIES Patient has no known allergies. MEDICATIONS No prescriptions on file. No family history on file. Social History Substance Use Topics - Smoking status: Never Smoker - Smokeless tobacco: Never Used - Alcohol use Not on file Review of Systems Constitutional: Negative for chills, fever and weight loss. Respiratory: Negative for cough, shortness of breath and wheezing. Cardiovascular: Negative for chest pain and palpitations. Gastrointestinal: Negative for abdominal pain, blood in stool, constipation, diarrhea, heartburn, melena, nausea and vomiting. Genitourinary: Positive for dysuria, frequency and urgency. Negative for flank pain and hematuria. Objective Pulse 76, resp. rate 16, weight 90.2 kg (198 lb 12.8 oz). Physical Exam Constitutional: She is well-developed, well-nourished, and in no distress. Non-toxic appearance. She does not have a sickly appearance. No distress. Cardiovascular: Normal rate, regular rhythm and normal heart sounds. Pulmonary/Chest: Effort normal and breath sounds normal. Abdominal: Soft. Normal appearance and bowel sounds are normal. There is no hepatosplenomegaly. There is no tenderness. There is no CVA tenderness. Musculoskeletal: Hands: Skin: Skin is warm and dry. ASSESSMENT/PLAN: 1. Urinary frequency - ICD9: 788.41, ICD10: R35.0 (primary diagnosis) Acute UA negative - Send urine for culture F/u with pcp or obgyn for concerns, do not suspect, has been in menopause for 1.5 years - Patient education for prevention given - URINE CULTURE - HCG QUAL UR B/O 2. Visit for suture removal - ICD9: V58.32, ICD10: Z48.02 Keep clean/covered Follow up if signs of infection occur Prescription instructions reviewed with patient as applicable. Patient advised if symptoms do not improve or if symptoms worsen sooner, to contact the office for further evaluation by their primary care physician. Potential red flag symptoms discussed with the patient. Reviewed appropriate action plan to take if red flag symptoms occur. Patient agreeable to treatment plan. Belia Berrios APRN.[facility] EMERGENCY DEPARTMENT Observed: 08/06/2018 Status: F Source: [place] SUMMARY 10:[address] [facility] REPOSITORY [facility] Medical Records Department [address] [place] [address] Emergency Department Summary 08/06/182011 MR#: [id number] Acct: [id number] Name: NAZARIO GE Rep #: [id number] : 1965 53 From: Brad Vega MD PCP: Johny Jimenez MD Status: DEP ER - ER Visit Summary Date of Service: 08/06/18 Chief Complaint: Left thumb laceration History of Present Illness: The patient is a 53 F who presents with a left thumb laceration. She was seen here earlier today after she cut her thumb trying to cut a croissant. The ED physician at that time repaired with skin glue. However it opened up when she got home. She denies any bleeding at this time. Physical Examination: Vital signs reviewed. There is a 1.5 cm laceration on the base of the left thumb on the palm side. There is no bleeding at this time Test Results: None performed Emergency Department Course and Treatment: Patient had laceration repair. 1 cc lidocaine was used to anesthetize the area. 2, 4 0 simple nylon sutures were placed. She will have these out in 7-10 days Treatment Plan: [] Disposition: Discharge Impression: Left thumb laceration, 1.5 cm Laceration repair This note was generated with [employer] dictation software. It may contain incorrect words, spelling, and punctuation that were not noted in review of the chart prior to signing ED Disposition - Plan for ED Patient: Disposition: Home or Assisted Living Chief Complaint: Laceration Instructions: ED Laceration All Referrals: Johny Jimenez [Primary Care Provider] - What to do if you have Problems For any increased pain, shortness of breath, bleeding, nausea or vomiting, chest pain, or any unexpected problems, contact your Primary Care Provider. Call [facility] ([phone]) or report to the closest Emergency Room. Call 911 if necessary. 08/06/182204 <Electronically signed by Brad Vega MD> Date Brad Vega MD Cosigner Signature (If Indicated): Date CC: Johny Jimenez MD DISCHARGE INSTRUCTION Observed: 08/06/2018 Status: F Source: [place] 8:[address] [facility] REPOSITORY [facility] Medical Records Department [address] [place] [address] Discharge Instruction 08/06/182011 MR#: [id number] Acct: [id number] Name: NAZARIO GE Rep #: [id number] : 1965 53 From: Brad Vega MD PCP: Johny Jimenez MD Status: REG ER ED Disposition - Plan for ED Patient: Disposition: Home or Assisted Living Chief Complaint: Laceration Instructions: ED Laceration All Referrals: Johny Jimenez [Primary Care Provider] - What to do if you have Problems For any increased pain, shortness of breath, bleeding, nausea or vomiting, chest pain, or any unexpected problems, contact your Primary Care Provider. Call [facility] ([phone]) or report to the closest Emergency Room. Call 911 if necessary. 08/06/182011 <Electronically signed by Brad Vega MD> Date Brad Vega MD Cosigner Signature (If Indicated): Date CC: Johny Jimenez MD EMERGENCY DEPARTMENT Observed: 08/06/2018 Status: F Source: [place] SUMMARY 1:[address] [facility] REPOSITORY [facility] Medical Records Department [address] [facility] [place] [address] Emergency Department Summary 08/06/18 1334 MR#: [id number] Acct: [id number] Name: NAZARIO GE Rep #: [id number] : 1965 53 From: Edinson Rivas MD PCP: Johny Jimenez MD Status: REG ER - ER Visit Summary Date of Service: 08/06/18 Chief Complaint: Laceration base left thumb History of Present Illness: The patient is a 53 F who is right- hand dominant presents a laceration that is 1.5 cm base of the left thumb volar surface. This occurred 2 hours prior to presentation. She denies paresthesia, anesthesia motors. She has no other complaints. Physical Examination: 1.5 cm laceration. Patient is able to AB duct, 80 duct, flex and extend the left thumb. Two-point determination normal. Capillary refill is normal. No other evidence of trauma. There is no point bone tenderness. Test Results: None Emergency Department Course and Treatment: Clean wound and Dermabond after discussion regarding options Treatment Plan: Dermabond Disposition: Appropriate home-going instructions, stable and improved Impression: 1.5 cm laceration left thumb This note was generated with [employer] software. It may contain incorrect words, spelling, and punctuation that were not noted in review of the chart prior to signing ED Disposition - Plan for ED Patient: Disposition: Home or Assisted Living Chief Complaint: Laceration Instructions: ED Laceration Ext Skin Glue Referrals: Johny Jimenez [Primary Care Provider] - As Needed What to do if you have Problems For any increased pain, shortness of breath, bleeding, nausea or vomiting, chest pain, or any unexpected problems, contact your Primary Care Provider. Call [facility] ([phone]) or report to the closest Emergency Room. Call 911 if necessary. 08/06/18 1336 <Electronically signed by Edinson Rivas MD> Date Edinson Rivas MD Cosigner Signature (If Indicated): Date CC: Johny Jimenez MD 12 LEAD ELECTROCARDIOGRAM Observed: 07/25/2018 Status: F Source: [place] 9:[address] [facility] REPOSITORY [facility] Cardiovascular Services [address] [place] [address] 12 Lead EKG 07/22/182044 MR#: [id number] Acct: [id number] Name: NAZARIO GE Rep #: [id number] : 1965 53 From: Mike Tabor MD Attending Dr: Status: DEP ER Ordering Dr: Deniz Jauregui MD Date: 07/22/18 Location: ED Sex: F C Admitted: Test Reason : CHEST OTHER Blood Pressure : / mmHG Vent. Rate : 070 BPM Atrial Rate : 070 BPM P-R Int : 132 ms QRS Dur : 088 ms QT Int : 386 ms P-R-T Axes : 046 -14 061 degrees QTc Int : 416 ms Normal sinus rhythm Normal ECG Confirmed by MIKE TABOR MD ([id number]), newspaper copy editor YOBANI RODARTE ([id number]) on 07/25/2018 9:07:24 AM Referred By: QUANG Confirmed By:MIKE TABOR MD 07/25/18 0907 Date Mike Tabor MD CC: Deniz Jauregui; Johny Jimenez MD Signed EMERGENCY DEPARTMENT Observed: 07/23/2018 Status: F Source: [place] SUMMARY 12:[address] [facility] REPOSITORY [facility] Medical Records Department [address] [place] [address] Emergency Department Summary 07/22/18 2220 MR#: [id number] Acct: [id number] Name: NAZARIO GE Rep #: [id number] : 1965 53 From: Deniz Jauregui MD PCP: Johny Jimenez MD Status: DEP ER - ER Visit Summary Date of Service: 07/22/18 Chief Complaint: Chest pain History of Present Illness: The patient is a 53 F presenting for evaluation secondary chest pain. Patient reports that since yesterday she has been getting intermittent shooting pains in her right lower chest. States this was not associated with any sort of injury. She reports that it is not this early worse with exertion, but will come and go intermittently and sometimes associated with different positions and movement. Patient states that the pain is worse both with palpation and breathing as well. She denies being short of breath. She denies any nausea diaphoresis or lightheadedness. She is never had any prior similar episodes in the past. Patient's only cardiovascular risk factor is hypertension, and she denies any PE risk factors. Physical Examination: Vital signs are within normal limits, patient is afebrile. General: Patient is well-nourished well-developed and in no acute distress. Head: Normocephalic, atraumatic Eyes: Pupils equal round and reactive bilaterally, extra occular motion intact bialterally ENT: Moist mucous membranes Neck: Supple, no lymphadenopathy, no JVD, no meningismus CVS: Heart regular rate and rhythm, no murmurs, rubs or gallops, radial pulses 2+ bilaterally Resp: Respirations nondistressed, lung sounds clear bilaterally, minimal tenderness to palpation of the right anterior chest Abdomen: Soft, nontender, nondistended, no palpable masses, normal bowel sounds Back: Nontender Extremities: Nontender, atraumatic, active full range of motion, no peripheral edema Skin: warm, no rashes, no petechia Neuro: Alert and oriented x 4, CN 2-12 intact, no lateralizing neurological defecits Psyc: Normal affect Test Results: EKG demonstrates sinus rhythm of [address] segments and normal T waves. CBC chemistry troponin unremarkable. PA lateral chest x-ray per radiology shows some minimal basilar scarring in the right base, but no evidence of acute pathology. Emergency Department Course and Treatment: Patient presented for evaluation secondary to chest pain. Her pain seems rather atypical for something cardiac, and she is PERC negative. Her workup as noted above is negative. Her heart score is 1. I believe she safely can discharge. She will follow-up with primary care. Disposition: Discharge Impression: 1. Chest wall pain This note was generated with [employer] dictation software. It may contain incorrect words, spelling, and punctuation that were not noted in review of the chart prior to signing ED Disposition - Plan for ED Patient: Disposition: Home or Assisted Living Chief Complaint: Chest Other Diagnosis: Chest wall pain Instructions: ED Strain Chest Wall Referrals: Johny Jimenez [Primary Care Provider] - 3-5 Days if not improving What to do if you have Problems For any increased pain, shortness of breath, bleeding, nausea or vomiting, chest pain, or any unexpected problems, contact your Primary Care Provider. Call [facility] ([phone]) or report to the closest Emergency Room. Call 911 if necessary. 07/23/18 0035 <Electronically signed by Deniz Jauregui MD> Date Deniz Jauregui MD Cosigner Signature (If Indicated): Date CC: Johny Jimenez MD RIBS UNI MIN 3V Observed: 07/22/2018 Status: F Source: [place] W/PA CHEST 8:[address] [facility] REPOSITORY [facility] Imaging Services [address] [place] [address] Ribs Uni Min 3V w/PA Chest MR#: [id number] Acct: [id number] Name: NAZARIO GE Rep #: [id number] : 1965 F 53 From: Vignesh Noe MD PCP: Johny Jimenez MD Status: REG ER Study: Ribs Uni Min 3V w/PA Chest Date of Exam: 07/22/18 Exam# [id number] Ordering Dr: Deniz Jauregui MD STUDY: X-RAY - UNILATERAL RIBS ( RIGHT ) WITH CHEST REASON FOR EXAM: Female, 53 years old. Pain TECHNIQUE - RIBS: 4 view(s) of the ribs. TECHNIQUE - CHEST: PA COMPARISON: None. FINDINGS - RIBS: Normal visualized ribs without a demonstrated fracture. FINDINGS - CHEST: There is discoid atelectasis or scarring in the right lower lobe.. There is no demonstrated pleural abnormality. Normal size heart. Normal mediastinum and lexie. Normal visualized pulmonary arteries. Normal visualized aortic arch and descending thoracic aorta. Normal visualized thoracic spine. Normal visualized ribs, clavicles, and shoulders. There is no demonstrated abnormality of the visualized soft tissue structures of the upper abdomen. RAD/Ribs Uni Min 3V w/PA Chest IMPRESSION: RIBS: Normal x-ray examination of the ribs. CHEST: Minor discoid atelectasis or scarring at the right lung base. Electronically Signed: Vignesh Noe MD at 21:37 EST , Service support , CC: Deniz Jauregui; Johny Jimenez MD Solar Sales Consultant: Signed CBC W/DIFF, AUTOMATED Collected: 07/22/2018 Status: F Source: [place] 8:[address] [facility] REPOSITORY TYPE CODE TESTS RESULT OUT OF RANGE REFERENCE UNITS LAB L100.1000 4.4-11.0 K/mm3 Normal WBC 7.6 LAB L100.1200 4.2-5.4 M/mm3 Normal RBC 4.98 LAB L100.1300 12.0-15.0 g/dl Normal HGB 14.1 LAB L100.1400 37-47 % Normal HCT 43.3 LAB L100.1500 81-99 fL Normal MCV 86.9 LAB L100.1600 27.0-32.0 pg Normal MCH 28.3 LAB L100.1700 32-36 g/gl Normal MCHC 32.6 LAB L100.1810 11.6-14.6 % High RDW CV 15.4 LAB L100.1820 35.1-43.9 fl High RDW SD 49.1 LAB L100.1900 150-450 K/mm3 Normal PLT 303 LAB L100.2000 6.2-12.0 fl Normal MPV 9.6 LAB L100.2100 47-70 % High NEUT% 73.2 LAB L100.2200 19-41 % Normal LY% 19.9 LAB L100.2300 0-10 % Normal MONO% 4.1 LAB L100.2400 0-5 % Normal EO% 2.4 LAB L100.2500 0-1 % Normal BASO% 0.3 LAB L100.2550 0.0-0.9 % Normal IM GRAN % 0.100 Result Comment: IG% - Immature Granulocytes (promyelocytes, myelocytes and metamyelocytes) > 1% indicates that a LEFT SHIFT is Present. LAB L100.2620 2.0-7.7 X10 3/uL Normal Absolute Neut 5.6 LAB L100.2720 0.83-4.51 X10 3/ul Normal Absolute Lymph 1.52 Performed By: #### L100.0100 #### [facility] [address] [place], [address] BASIC METABOLIC Collected: 07/22/2018 Status: F Source: [place] PROFILE (BMP) 8:[address] [facility] REPOSITORY TYPE CODE TESTS RESULT OUT OF RANGE REFERENCE UNITS LAB L501.0100 74-106 mg/dL Normal GLU 104 Result Comment: Fasting Glucose result from 100 to 125 mg/dL suggests IMPAIRED HOMEOSTASIS per A.D.A. criteria. Please note revised GLUCOSE reference range effective 2017. LAB L501.1000 7-18 mg/dL High BUN 23 LAB L501.1100 0.55-1.02 mg/dL Normal CREAT,SERUM 0.94 Result Comment: The validity of the calculated GFR AND GFRAA in patients over 70 years has not been determined. Clinical correlation is essential. LAB L501.1110 >60 mL/min Normal EST GFR 67 Result Comment: Non- GFR Calc LAB L501.1115 >60 mL/min Normal EST GFR - AA 81 Result Comment: GFR Calc LAB L501.1255 ml/min Normal Estimated CRCL 71.42 LAB L501.1300 10-20 RATIO High BUN/CRE 24.4 LAB L501.2200 8.5-10 mg/dL Normal .1 CA 9.1 LAB L501.5300 136-14 mmol/L Normal 5 NA 140 LAB L501.5600 3.5-5. mmol/L Normal 1 K 3.6 LAB L501.5900 98-107 mmol/L Normal CL 106 LAB L501.6100 21.0-3 mmol/L Normal 2.0 CO2 29.0 LAB L501.6200 5-15 Normal GAP 5 Performed By: #### L500.2500, L501.4010 #### [facility] [address] [place], [address] TROPONIN-I Collected: 07/22/2018 Status: F Source: [place] 8:[address] [facility] REPOSITORY TYPE CODE TESTS RESULT OUT OF RANGE REFERENCE UNITS LAB L501.4010 <0.045 ng/mL Normal < 0.015 TROPONIN-I Result Comment: TROPONIN-I EXPECTED VALUES <0.045 Negative 0.045 - 0.590 Consistent with Cardiac Damage > OR = 0.600 Critical Value Not every elevated troponin is indicative of DE. These values should be used with clinical judgement in examining the patient's clinical picture for diagnosis. To establish a diagnosis of DE versus myocardial injury, there must be a demonstrated rise and/or fall in the troponin values, in addition to ischemic symptoms, EKG changes, new regional wall motion abnormality, and/or angiographical evidence. PLEASE NOTE: REFERENCE RANGES EDITED 17 Performed By: #### L500.2500, L501.4010 #### [facility] [address] [place], [address] 12 LEAD ELECTROCARDIOGRAM Observed: 06/10/2018 Status: F Source: [place] 11:[address] [facility] REPOSITORY [facility] Cardiovascular Services [address] [facility] [place] [address] 12 Lead EKG 06/04/18 0040 MR#: [id number] Acct: [id number] Name: NAZARIO GE Rep #: [id number] : 1965 52 From: Paul Villalta MD Attending Dr: Rosy Rosas MD Status: DIS KANDICE Ordering Dr: July Gerardo Date: 06/04/18 Location: U Sex: F C Admitted: 06/03/18 Test Reason : ADMISSION EKG Blood Pressure : / mmHG Vent. Rate : 062 BPM Atrial Rate : 062 BPM P-R Int : 138 ms QRS Dur : 088 ms QT Int : 426 ms P-R-T Axes : 056 -15 035 degrees QTc Int : 432 ms Normal sinus rhythm Possible Left atrial enlargement Borderline ECG When compared with ECG of 03-JUN-2018 23:45, MANUAL COMPARISON REQUIRED, DATA IS UNCONFIRMED Confirmed by PAUL VILLALTA ([id number]), newspaper copy editor YOBANI RODARTE ([id number]) on 06/10/2018 11:37:56 AM Referred By: RAFAL Confirmed By:PAUL VILLALTA 06/10/18 1137 Date Paul Villalta MD CC: md Johny Jimenez; July Gerardo; Rosy Rosas MD Signed 12 LEAD ELECTROCARDIOGRAM Observed: 06/06/2018 Status: F Source: [place] 1:[address] [facility] REPOSITORY [facility] Cardiovascular Services [address] [place] [address] 12 Lead EKG 06/03/18 2345 MR#: [id number] Acct: [id number] Name: NAZARIO GE Rep #: [id number] : 1965 52 From: Jeovany Ayala MD Attending Dr: Rosy Rosas MD Status: DIS KANDICE Ordering Dr: Vignesh Bowden MD Date: 06/03/18 Location: [facility] Sex: F C Admitted: 06/03/18 Test Reason : REPEAT Blood Pressure : / mmHG Vent. Rate : 060 BPM Atrial Rate : 060 BPM P-R Int : 138 ms QRS Dur : 090 ms QT Int : 406 ms P-R-T Axes : 053 -16 040 degrees QTc Int : 406 ms Normal sinus rhythm Septal DE, age undetermined Confirmed by JEOVANY AYALA MD ([id number]), newspaper copy editor YOBANI RODARTE ([id number]) on 06/06/2018 1:14:27 PM Referred By: IRVIN Confirmed By:JEOVANY AYALA MD 06/06/18 9829 Date Jeovany Ayala MD CC: md Johny Jimenez; Rosy Rosas MD; Vignesh Bowden MD Signed 12 LEAD ELECTROCARDIOGRAM Observed: 06/06/2018 Status: F Source: [place] 1:[address] [facility] REPOSITORY [facility] Cardiovascular Services [address] [place] [address] 12 Lead EKG 06/03/182121 MR#: [id number] Acct: [id number] Name: NAZARIO GE Rep #: [id number] : 1965 52 From: Jeovany Ayala MD Attending Dr: Rosy Rosas MD Status: DIS KANDICE Ordering Dr: Vignesh Bowden MD Date: 06/03/18 Location: [facility] Sex: F C Admitted: 06/03/18 Test Reason : CP Blood Pressure : / mmHG Vent. Rate : 093 BPM Atrial Rate : 093 BPM P-R Int : 134 ms QRS Dur : 086 ms QT Int : 346 ms P-R-T Axes : 066 -17 052 degrees QTc Int : 430 ms Normal sinus rhythm with sinus arrhythmia Septal infarct , age undetermined Abnormal ECG Confirmed by JEOVANY AYALA MD ([id number]), newspaper copy editor YOBANI RODARTE ([id number]) on 06/06/2018 1:13:23 PM Referred By: IRVIN Confirmed By:JEOVANY AYALA MD 06/06/18 9892 Date Jeovany Ayala MD CC: md Johny Jimenez; Rosy Rosas MD; Vignesh Bowden MD Signed DISCHARGE SUMMARY Observed: 06/04/2018 Status: F Source: [place] 3:[address] [facility] REPOSITORY [facility] Medical Records Department [address] [place] [address] Discharge Summary 06/04/18 1519 MR#: [id number] Acct: [id number] Name: NAZARIO GE Rep #: [id number] : 1965 52 From: Rosy Rosas MD PCP: Johny Jimenez md Status: ADM KANDICE Y Location: [place] [address] Discharge Date and Diagnosis - Problem List Patient Problems: Active and Suspected Problems Chest pain (Acute) Hypertensive urgency (Acute) Date of Admission: 06/03/18 Date of Discharge: 06/04/18 - Primary Discharge Diagnosis Active and Suspected Problems Chest pain (Acute) Hypertensive urgency (Acute) - Secondary Discharge Diagnosis Chronic Problems HTN (hypertension) (Chronic) Obesity (Chronic) Hospital Course and Treatment Operations: None Procedures: Stress test Summary of Care Provided: The patient is a 52 year old F with a remote history of hypertension (has stopped prior antihypertensive meds) who was admitted for chest pain. Patient was noted to have uncontrolled hypertension with systolic blood pressures in the 170s. Patient was started on antihypertensive agents and cardiac enzymes and EKGs were done. Patient's enzymes and EKGs were unremarkable. She underwent a stress test which showed no evidence of reversible ischemia. Patient had no further episodes of chest pain. It was felt that patient's chest pain was likely related to hypertensive urgency. Blood pressure had improved following addition of lisinopril. Lipid panel was unremarkable, requiring no initiation of statin therapy. Patient was otherwise doing well with stable and ready for discharge and had met maximal hospital benefit. She will be discharged home on lisinopril and will follow up with her PCP in 1-2 weeks (will need BMP checked, starting LAUREANO inhibitor). Patient Problems: Active and Suspected Problems Chest pain (Acute) Hypertensive urgency (Acute) - Physical Exam General: Alert, Oriented x3, Cooperative HEENT: Atraumatic, Normocephalic Neck: Supple Lungs: Clear to auscultation, Normal air movement Cardiovascular: Regular rate, No murmurs Abdomen: Bowel Sounds Present, Soft, Non Tender Extremities: No edema, Capillary Refill Less than 3 Seconds Skin: No rashes, No breakdown Musculoskeletal: No Tenderness to Palpation of Joints or Extremities Neurological: Cranial nerves II-XII grossly intact Psych/Mental Status: Normal Affect, Appropriate Vital Signs Temp Pulse Resp BP Pulse Ox 97.8 F 70 16 135/95 H 98 06/04/18 08:48 06/04/18 11:25 06/04/18 08:48 06/04/18 08:48 06/04/18 08:48 Oxygen Delivery Method Room Air Weight: 93.4 kg Body Mass Index (BMI) 31.3 Intake and Output for Last 24 Hours Intake Total 1461 / 1461 Balance 1461 / 1461 Laboratory Tests Past 24 Hrs WBC 7.6 RBC 5.46 H Hgb 15.2 H Hct 46.7 MCV 85.5 MCH 27.8 MCHC 32.5 Discharge Diet: No Restrictions Discharge Activity: Return to Normal Activity Call your doctor if you observe: Shortness of breath, Dizziness, Chest pain Home Medications: Medications to take at Discharge Lisinopril [Zestril] 20 mg PO DAILY #30 tablet 06/04/18 Following Prescrptions Were Given to Patient: Lisinopril [Zestril] 20 mg PO DAILY #30 tablet Primary Care Physician: Johny Jimenez [Primary Care Provider] - Medical Necessity - Tobacco Use Smoking Status: Never smoker Tobacco Use: Non-smoker Meaningful Use Info Meaningful Use Diagnoses (Choose all that apply): None applicable Code Visit Inpatient E AND M: 58790 Disch Hosp 06/04/18 1522 <Electronically signed by Rosy Rosas MD> Date Rosy Rosas MD Cosigner Signature (if applicable): Date CC: md Johny Jimenez; Rosy Rosas MD Signed DISCHARGE INSTRUCTION Observed: 06/04/2018 Status: F Source: [place] 3:[address] [facility] REPOSITORY [facility] Medical Records Department [address] [place] [address] Instructions for Home/Discharge Instructions 06/04/181515 MR#: [id number] Acct: [id number] Name: NAZARIO GE Rep #: [id number] : 1965 52 From: Rosy Rosas MD PCP: Johny Jimenez md Status: ADM KANDICE - Discharge Diagnoses Current Active Problems: Current Active and Chronic Problems HTN (hypertension) (Chronic) Obesity (Chronic) Chest pain (Acute) Hypertensive urgency (Acute) You will use the following diet at home:: No restrictions Your food should be the consistency of: Regular Discharge Activity: Return to Normal Activity Call your doctor if you observe: Shortness of breath, Dizziness, Chest pain Allergies/Adverse Reactions: Allergies No Known Allergies Allergy (Verified 06/03/18 21:30) Medications to take at Discharge Lisinopril [Zestril] 20 mg PO DAILY #30 tablet 06/04/18 The following prescriptions were given: Lisinopril [Zestril] 20 mg PO DAILY #30 tablet Primary Care Physician: Johny Jimneez [Primary Care Provider] - Test Results: Will need labs checked in 1-2 weeks, started on LAUREANO-I Test results from this visit will be discussed in further detail at your follow-up appointment, if applicable. Proposed Discharge Date: 06/04/18 06/04/181518 <Electronically signed by Rosy Rosas MD> Date Rosy Rosas MD CC: md Johny Jimenez STRESS REPORT Observed: 06/04/2018 Status: F Source: [place] 8:[address] [facility] REPOSITORY [facility] Cardiovascular Services [address] [place] [address] MR#: [id number] Acct: [id number] Name: NAZARIO GE Rep #: [id number] : 1965 52 From: Jeovany Ayala MD Primary Care: Johny Jimenez md Status: ADM KANDICE Ordering Dr: Sex: F C Stress Test Report Date: 06/04/2018 Procedure: Exercise tolerance test/imaging study Indications: Chest pain Consent: Per the patient Procedure: The patient exercised on a Codey protocol for 6 minutes and 30 seconds completing Stage II and 30 seconds of Stage III achieving a peak heart rate of 176 bpm (103 % predicted maximal heart rate) with a peak blood pressure 184/112 mmHg and a peak MET capacity of 7 METs. The baseline ECG demonstrated normal sinus rhythm. The peak exercise ECG demonstrated somatic/motion artifact with no obvious ECG changes. There was an occasional PVC during recovery. The functional capacity was considered average. There was no complaint of chest discomfort during exercise or recovery. The examination was discontinued secondary to fatigue. Impression: 1. Technically adequate (percent predicted maximal heart rate greater than 85%) exercise tolerance test 2. Peak exercise ECG with somatic/motion artifact with no obvious ECG changes 3. There was an occasional PVC during recovery 4. Nuclear images pending Myocardial perfusion imaging study: Technique: The patient was injected with 14.1 mCi of technetium 99m Cardiolite and subsequently rest SPECT Cardiolite nuclear imaging was obtained in the horizontal long, vertical long, and short axis views. The patient exercised on a Codey protocol for 6 minutes and 30 seconds completing Stage II and 30 seconds of Stage III achieving a peak heart rate of 176 bpm (103 % predicted maximal heart rate) with a peak blood pressure 184/112 mmHg and a peak MET capacity of 7 METs. The patient was injected with 44.1 mCi of technetium 99m Cardiolite and subsequently stress SPECT Cardiolite nuclear imaging was obtained in the horizontal long, vertical long, and short axis views. A gated Cardiolite study at peak stress was obtained. Interpretation: Rest and stress SPECT Cardiolite nuclear imaging status post realignment, normalization, and attenuation correction, demonstrates the appearance of relative uniform tracer uptake and myocardial perfusion appearing within normal limits. There is end systolic thickening and brightening. The gated Cardiolite study demonstrates myocardial thickening and inward wall motion. The reported LVEF is 76 %. Impression: 1. Rest and stress SPECT Cardiolite nuclear imaging demonstrate relative uniform tracer uptake and myocardial perfusion appearing within normal limits. 2. The gated Cardiolite study reports an LVEF of 76%. This note was generated with [employer] software. It may contain incorrect words, spelling, and punctuation that were not noted in checking the note before signing. 06/04/18 0823 <Electronically signed by Jeovany Ayala MD> Date Jeovany Ayala MD CC: md Johny Jimenez; July Gerardo Date Dictated: 06/04/18820 Date Transcribed: 06/04/18820 Solar Sales Consultant: PM Signed CBC W/DIFF, AUTOMATED Collected: 06/04/2018 Status: F Source: [place] 3:[address] [facility] REPOSITORY TYPE CODE TESTS RESULT OUT OF RANGE REFERENCE UNITS LAB L100.1000 4.4-11.0 K/mm3 Normal WBC 6.8 LAB L100.1200 4.2-5.4 M/mm3 Normal RBC 5.03 LAB L100.1300 12.0-15.0 g/dl Normal HGB 14.1 LAB L100.1400 37-47 % Normal HCT 42.9 LAB L100.1500 81-99 fL Normal MCV 85.3 LAB L100.1600 27.0-32.0 pg Normal MCH 28.0 LAB L100.1700 32-36 g/gl Normal MCHC 32.9 LAB L100.1810 11.6-14.6 % High RDW CV 15.0 LAB L100.1820 35.1-43.9 fl High RDW SD 47.0 LAB L100.1900 150-450 K/mm3 Normal PLT 267 LAB L100.2000 6.2-12.0 fl Normal MPV 10.6 LAB L100.2100 47-70 % Normal NEUT% 68.7 LAB L100.2200 19-41 % Normal LY% 22.8 LAB L100.2300 0-10 % Normal MONO% 5.6 LAB L100.2400 0-5 % Normal EO% 2.5 LAB L100.2500 0-1 % Normal BASO% 0.3 LAB L100.2550 0.0-0.9 % Normal IM GRAN % 0.100 Result Comment: IG% - Immature Granulocytes (promyelocytes, myelocytes and metamyelocytes) > 1% indicates that a LEFT SHIFT is Present. LAB L100.2620 2.0-7.7 X10 3/uL Normal Absolute Neut 4.7 LAB L100.2720 0.83-4.51 X10 3/ul Normal Absolute Lymph 1.56 Performed By: #### L100.0100 #### [facility] [address] [place], [address] PROTHROMBIN TIME W/INR Collected: 06/04/2018 Status: F Source: [place] 3:[address] [facility] REPOSITORY TYPE CODE TESTS RESULT OUT OF RANGE REFERENCE UNITS LAB L300.4150 11.7-14.9 SECONDS Normal PROTIME 13.1 LAB L300.4200 Normal INR 1.0 Performed By: #### L300.3900, L300.4310 #### [facility] [address] [place], [address] PARTIAL THROMBOPLAST Collected: 06/04/2018 Status: F Source: [place] TIME 3:[address] [facility] REPOSITORY TYPE CODE TESTS RESULT OUT OF RANGE REFERENCE UNITS LAB L300.4310 24.1-36.2 Seconds Normal PTT 27.6 Performed By: #### L300.3900, L300.4310 #### [facility] [address] [place], [address] TROPONIN-I Collected: 06/04/2018 Status: F Source: [place] 3:[address] [facility] REPOSITORY Order Comment: 'TROP' Serial specimen #1, #2 or #3: 3 TYPE CODE TESTS RESULT OUT OF RANGE REFERENCE UNITS LAB L501.4010 <0.045 ng/mL Normal < 0.015 TROPONIN-I Result Comment: TROPONIN-I EXPECTED VALUES <0.045 Negative 0.045 - 0.590 Consistent with Cardiac Damage > OR = 0.600 Critical Value Not every elevated troponin is indicative of DE. These values should be used with clinical judgement in examining the patient's clinical picture for diagnosis. To establish a diagnosis of DE versus myocardial injury, there must be a demonstrated rise and/or fall in the troponin values, in addition to ischemic symptoms, EKG changes, new regional wall motion abnormality, and/or angiographical evidence. PLEASE NOTE: REFERENCE RANGES EDITED 17 Performed By: #### L501.4010 #### [facility] [address] [place], [address] BASIC METABOLIC Collected: 06/04/2018 Status: F Source: [place] PROFILE (BMP) 3:[address] [facility] REPOSITORY TYPE CODE TESTS RESULT OUT OF RANGE REFERENCE UNITS LAB L501.0100 74-106 mg/dL Normal GLU 94 Result Comment: Please note revised GLUCOSE reference range effective 2017. LAB L501.1000 7-18 mg/dL Normal BUN 9 LAB L501.1100 0.55-1.02 mg/dL Normal CREAT,SERUM 0.56 Result Comment: The validity of the calculated GFR AND GFRAA in patients over 70 years has not been determined. Clinical correlation is essential. LAB L501.1110 >60 mL/min Normal EST GFR 120 Result Comment: Non- GFR Calc LAB L501.1115 >60 mL/min Normal EST GFR - AA 145 Result Comment: GFR Calc LAB L501.1255 ml/min Normal Estimated CRCL 121.24 LAB L501.1300 10-20 RATIO BUN/CRE Normal 15.9 LAB L501.2200 8.5-10 mg/dL .1 CA Normal 9.0 LAB L501.5300 136-14 mmol/L 5 NA Normal 142 LAB L501.5600 3.5-5. mmol/L 1 K Normal 3.7 LAB L501.5900 98-107 mmol/L High CL 109 LAB L501.6100 21.0-3 mmol/L 2.0 CO2 Normal 25.0 LAB L501.6200 5-15 GAP Normal 8 Performed By: #### L500.2500, L500.4100 #### [facility] [address] [place], [address] LIPID PROFILE Collected: 06/04/2018 Status: F Source: [place] 3:[address] [facility] REPOSITORY TYPE CODE TESTS RESULT OUT OF RANGE REFERENCE UNITS LAB L501.4900 200 mg/dL Normal CHOL 167 Result Comment: <200 mg/dL Desirable 200-240 mg/dL Borderline >240 mg/dL High Risk LAB L501.5000 mg/dL Normal TRIG 78 Result Comment: The drugs N-Acetylcysteine and Metamizole may falsely depress this assay. Serum Triglycerides Reference Interval Normal <150 mg/dL Borderline high 150 - 199 mg/dL High 200 - 499 mg/dL Very High > or = 500 mg/dL LAB L501.6400 mg/dL Normal HDL 52 Result Comment: The drugs N-Acetylcysteine and Metamizole may falsely depress this assay. Reference Range HDL <40 mg/dL Low HDL Cholesterol HDL >or= 60 mg/dL High HDL Cholesterol LAB L501.6500 0-130 mg/dL Normal LDL 99 LAB L501.6600 5-40 mg/dL Normal VLDL 16 Performed By: #### L500.2500, L500.4100 #### [facility] [address] [place], [address] TROPONIN-I Collected: 06/04/2018 Status: F Source: [place] 1:[address] [facility] REPOSITORY Order Comment: 'TROP' Serial specimen #1, #2 or #3: 2 TYPE CODE TESTS RESULT OUT OF RANGE REFERENCE UNITS LAB L501.4010 <0.045 ng/mL Normal < 0.015 TROPONIN-I Result Comment: TROPONIN-I EXPECTED VALUES <0.045 Negative 0.045 - 0.590 Consistent with Cardiac Damage > OR = 0.600 Critical Value Not every elevated troponin is indicative of DE. These values should be used with clinical judgement in examining the patient's clinical picture for diagnosis. To establish a diagnosis of DE versus myocardial injury, there must be a demonstrated rise and/or fall in the troponin values, in addition to ischemic symptoms, EKG changes, new regional wall motion abnormality, and/or angiographical evidence. PLEASE NOTE: REFERENCE RANGES EDITED 17 Performed By: #### L501.4010 #### [facility] [address] [place], [address] HISTORY AND PHYSICAL Observed: 06/03/2018 Status: F Source: [place] EXAM 11:[address] [facility] REPOSITORY [facility] Medical Records Department [address] [place] [address] History and Physical 06/03/18 2344 MR#: [id number] Acct: [id number] Name: NAZARIO GE Rep #: [id number] : 1965 52 From: July Gerardo PCP: Johny Jimenez md Status: ADM KANDICE Y Location: [place] [address] Problem List (1) Hypertensive urgency Status: Acute (2) Chest pain Status: Acute Qualifiers: Chest pain type: unspecified Qualified Code(s): R07.9 - Chest pain, unspecified (3) HTN (hypertension) Status: Chronic Qualifiers: Hypertension type: essential hypertension Qualified Code(s): I10 - Essential (primary) hypertension (4) Obesity Status: Chronic Qualifiers: Obesity type: due to excess calories Obesity classification: adult class 1 (BMI 30 - 34.9) History of Present Illness Date of Admission: 06/03/18 Chief Complaint: Chest pain The patient is a 52 y/o F w/ PMHx: Obesity, HTN not on medications who notes she has not been to see her physician since of her last child who presents to the [facility] ED on 06/03/18 with history of intermittent waxing and waning chest pressure, tightness in the midsternal region radiating toward the middle of her BL shoulder blades as well as her BL neck and jaw region with associated dyspnea and nausea, rated 5-6/10 when onset, lasting minutes, does not appear to improve with rest starting AM of day of presentation. She notes she has had similar presentation in the past; however, she never had radiation to her neck and jaw at that time and she notes her symptoms at that time improved with relaxation. She notes over the weekend she did not have a healthy diet. She has been attempting to eat healthy and has lost 40 lbs since March. In the ED work-up included T 98.1, heart rate 111, BP 199/102, respiratory rate 18, 100% on room air--> BP 154/86 following IV Lopressor x1 with repeat 174/89, CBC with WBC 7.6, hemoglobin 15.2, platelet 301 without shift, BMP with potassium 3.3, glucose 111, troponin less than 0.015, EKG with nonspecific V3 through V6 findings suspected secondary to artifact with repeat EKG pending upon evaluation of patient, chest x-ray with no acute findings. In the ED patient administered IV Lopressor in addition to aspirin 324 mg p.o. x1. Upon ED evaluation patient denied any chest pain and had been chest pain-free since ED presentation. Past Medical History Past Medical History (Chronic Problems): Chronic Problems HTN (hypertension) (Chronic) Obesity (Chronic) Allergies No Known Allergies Allergy (Verified 06/03/18 21:30) Home Medications: Ambulatory Orders Medication Instructions Recorded NK 06/03/18 Surgical History: appendectomy Psychiatric History: No pertinent psych hx ENAMEL PULVERIZER History: No pertinent ENAMEL PULVERIZER history Lives: With Family - Patient lives with her 4 daughters. Smoking Status: Never smoker Tobacco Use: Non-smoker Alcohol: None Drugs: None - *Family History Maternal History Items: - - Patient denies any marked maternal or paternal family history including heart disease, diabetes, high cholesterol. She does note a maternal uncle with history of stroke. Paternal History Items: - - Patient denies any marked maternal or paternal family history including heart disease, diabetes, high cholesterol. Review of Systems Constitutional: Reports: Fatigue. Denies: Chills, Fever, Weight Change HEENT: Denies: Head Aches, Sinus Congestion, Sinus Drainage Cardiovascular: Reports: Chest Pain, Chest Pressure, Chest Tightness. Denies: Light Headedness, Orthopnea, Palpitations, Syncope Respiratory: Reports: Shortness of Breath. Denies: Cough, Shortness of breath at rest, Sputum production Gastrointestinal: Reports: Nausea. Denies: Abdominal Pain, Vomiting Genitourinary: Denies: Dysuria Musculoskeletal: Denies: Joint Pain, Joint Tenderness Skin: Denies: Rash, Wounds Neurological: Denies: Numbness, Tingling, Focal weakness Psychiatric: Denies: Anxiety, Depression, Homicidal Ideations, Suicidal Ideations Hematologic/ Lymphatic: Denies: Easy Bruising, Easy Bleeding VTE Information - Inpt Only VTE Present on Admission: No VTE Mechan Device Prophylaxis: SCD's VTE Pharm Prophylaxis ordered?: Yes Patient Problems: Active and Suspected Problems Chest pain (Acute) Hypertensive urgency (Acute) Subjective: Seated upright in ED bed, no acute distress, denies current chest discomfort. Objective: Physical Examination: General: awake, alert, oriented x 3 and cooperative, seated upright in the ED bed in no apparent distress. Skin: normal color, turgor, no icterus, cyanosis. HEENT: AT/NC, EOMI, PERRLA, MMM, no carotid bruits or JVD noted. Lungs: CTA bilaterally, moderate effort, mild decrease BL bases, no rales, ronchi or wheezing. Heart: Regular rate and rhythm; no gallop, rub audible. Abdomen: soft, obese, NTTP, ND, normal BS, no HSM. Extremities: no cyanosis, clubbing, or edema. Neurological: patient awake, alert, oriented x 3; cognitive function intact; pupils equally reactive to light and accomodation; cranial nerves II-XII grossly normal, moving all 4 extremities, no focal deficits, strength preserved. Psychiatric: affect appears normal, no acute evidence of depressive or anxiety feelings. - Physical Exam Vital Signs Temp Pulse Resp BP Pulse Ox 98.1 F 71 16 174/89 H 100 06/03/18 21:17 06/03/18 23:18 06/03/18 23:18 06/03/18 23:18 06/03/18 23:18 Oxygen Delivery Method Room Air Weight: 214 lb 11.684 oz Body Mass Index (BMI) 32.6 Laboratory Tests Past 24 Hrs WBC 7.6 RBC 5.46 H Hgb 15.2 H Hct 46.7 MCV 85.5 MCH 27.8 MCHC 32.5 RDW 15.1 H RDW Differential 47.5 H Assessment/Plan All Active Problems Chest pain (Acute) Hypertensive urgency (Acute) The patient is a 52 y/o F w/ PMHx: Obesity, HTN not on medications who notes she has not been to see her physician since of her last child who presents to the [facility] ED on 06/03/18 with history of intermittent waxing and waning chest pressure. (1) Chest Pain: EKG in ED nonspecific findings V4 through V6 with repeat EKG pending as suspected artifact, CXR w/ no acute process, initial trop > 0.015. Will admit to PCU, place on a monitored bed to assure no acute myocardial infarction with serial cardiac enzymes and EKGs. Given atypical ST-T changes on EKG although repeat pending and suspected artifact, to be cautious will obtain nuclear treadmill if enzymes remain appropriate. If elevate will discontinue and consult Cardiology. As noted #2, initiating BP regimen. ASA, NG, morphine. FLP in AM w/ statin initiated. Mag pending. (2) Hypertensive Urgency: Notably elevated BP upon presentation, uncontrolled for likely years, no recent PCP evaluations, will initiate on ACEI-HCTZ regimen, monitor BP and further add as needed or increase, PRN hydralazine. (3) Hypokalemia: Admission K+ 3.3, supplementation given, repeat level in AM. Mag pending. (4) Obesity: Weight loss and lifestyle changes encouraged, nutrition consulted. (5) DVT Prophylaxis: SCDs, lovenox. Code Visit OBSV Florencio AND M: [id number] Initial observation care L3 06/03/18 2358 <Electronically signed by July Gerardo > Date July Gerardo Cosigner Signature: Date (if applicable) CC: md Johny Jimenez; July Gerardo Signed EMERGENCY DEPARTMENT Observed: 06/03/2018 Status: F Source: [place] SUMMARY 11:[address] [facility] REPOSITORY [facility] Medical Records Department [address] [facility] [place] [address] Emergency Department Summary 06/03/18 2130 MR#: [id number] Acct: [id number] Name: NAZARIO GE Rep #: [id number] : 1965 52 From: Vignesh Bowden MD PCP: Johny Jimenez md Status: ADM KANDICE - ER Visit Summary Date of Service: 06/03/18 Chief Complaint: Chest pain History of Present Illness: The patient is a 52 F history of chronic hypertension for which she is never been placed on any medication. Patient states the last several hours she has had fluttering heartbeat with chest pain. She is never had any prior cardiac workup nor any stress test or heart catheterization. She denies recent exertional chest pain. She has had mild shortness of breath. And also nauseated night associated dizziness. No headache. No radiation to her back. Physical Examination: Middle-aged female. No acute distress. Currently pain-free. Blood pressure is elevated 199/102. Pulse ox 100% on room air no hypoxia. Afebrile. H EENT exam unremarkable. No facial droop. Normal speech. Neck nontender. No JVD. Lungs clear to auscultation bilaterally. Heart regular rhythm rate about 95 no murmur. Chest wall minimal tenderness. No ecchymosis or bruising. No subcu air no crepitance. No bony deformity. Abdomen soft nontender. Normal bowel sounds no peritoneal signs. Patient is moving all 4 extremities. Neurovascular intact. 5 out of 5 equal symmetrical arson investigator strength. Dorsi plantar flexion intact. Normal motor strength and sensation both upper and lower extremities. Calves nontender without edema nor cords. Back exam nontender. Neurologically she is awake and alert with no focal motor or sensory deficits. NIH is 0. Test Results: CBC normal. BMP unremarkable. Potassium 3.3. Troponin normal. Portable chest x-ray one view shows no acute abnormality. Normal cardiac silhouette. Normal mediastinum and aorta. Read both by myself and the radiologist. EKG is a sinus rhythm. There is some artifact. There is subtle ST depression in the lateral leads. No signs of acute DE. She is pain-free with EKG. Emergency Department Course and Treatment: Patient with acute on chronic hypertension it has been untreated. She also has atypical chest pain. She will undergo cardiac workup. Also received Lopressor IV for her blood pressure. Treatment Plan: Repeat exam patient is doing well at 2300. Pain-free. Her blood pressure is starting to go back up at 170/100 she will be given the complete dose of Lopressor. I will speak to the hospitalist about admission. Disposition: Admission Impression: Acute chest pain uncertain etiology. Acute on chronic hypertension untreated This note was generated with [employer] dictation software. It may contain incorrect words, spelling, and punctuation that were not noted in review of the chart prior to signing ED Disposition - Plan for ED Patient: Chief Complaint: Chest Pain Referrals: Johny Jimenez [Primary Care Provider] - What to do if you have Problems For any increased pain, shortness of breath, bleeding, nausea or vomiting, chest pain, or any unexpected problems, contact your Primary Care Provider. Call [facility] ([phone]) or report to the closest Emergency Room. Call 911 if necessary. 06/03/18 5373 <Electronically signed by Vignesh Bowden MD> Date Vignesh Bowden MD Cosigner Signature (If Indicated): Date CC: md Johny Jimenez CBC W/DIFF, AUTOMATED Collected: 06/03/2018 Status: F Source: [place] 9:[address] [facility] REPOSITORY TYPE CODE TESTS RESULT OUT OF RANGE REFERENCE UNITS LAB L100.1000 4.4-11.0 K/mm3 Normal WBC 7.6 LAB L100.1200 4.2-5.4 M/mm3 High RBC 5.46 LAB L100.1300 12.0-15.0 g/dl High HGB 15.2 LAB L100.1400 37-47 % Normal HCT 46.7 LAB L100.1500 81-99 fL Normal MCV 85.5 LAB L100.1600 27.0-32.0 pg Normal MCH 27.8 LAB L100.1700 32-36 g/gl Normal MCHC 32.5 LAB L100.1810 11.6-14.6 % High RDW CV 15.1 LAB L100.1820 35.1-43.9 fl High RDW SD 47.5 LAB L100.1900 150-450 K/mm3 Normal PLT 301 LAB L100.2000 6.2-12.0 fl Normal MPV 10.5 LAB L100.2100 47-70 % Normal NEUT% 64.1 LAB L100.2200 19-41 % Normal LY% 25.8 LAB L100.2300 0-10 % Normal MONO% 6.7 LAB L100.2400 0-5 % Normal EO% 3.0 LAB L100.2500 0-1 % Normal BASO% 0.1 LAB L100.2550 0.0-0.9 % Normal IM GRAN % 0.300 Result Comment: IG% - Immature Granulocytes (promyelocytes, myelocytes and metamyelocytes) > 1% indicates that a LEFT SHIFT is Present. LAB L100.2620 2.0-7.7 X10 3/uL Normal Absolute Neut 4.9 LAB L100.2720 0.83-4.51 X10 3/ul Normal Absolute Lymph 1.97 Performed By: #### L100.0100 #### [facility] [place], [address] BASIC METABOLIC Collected: 06/03/2018 Status: F Source: [place] PROFILE (BMP) 9:[address] [facility] REPOSITORY TYPE CODE TESTS RESULT OUT OF RANGE REFERENCE UNITS LAB L501.0100 74-106 mg/dL High GLU 111 Result Comment: Fasting Glucose result from 100 to 125 mg/dL suggests IMPAIRED HOMEOSTASIS per A.D.A. criteria. Please note revised GLUCOSE reference range effective 2017. LAB L501.1000 7-18 mg/dL Normal BUN 12 LAB L501.1100 0.55-1.02 mg/dL Normal CREAT,SERUM 0.70 Result Comment: The validity of the calculated GFR AND GFRAA in patients over 70 years has not been determined. Clinical correlation is essential. LAB L501.1110 >60 mL/min Normal EST GFR 94 Result Comment: Non- GFR Calc LAB L501.1115 >60 mL/min Normal EST GFR - AA 113 Result Comment: GFR Calc LAB L501.1255 ml/min Normal Estimated CRCL 96.99 LAB L501.1300 10-20 RATIO Normal BUN/CRE 17.1 LAB L501.2200 8.5-10 mg/dL Normal .1 CA 9.6 LAB L501.5300 136-14 mmol/L Normal 5 NA 140 LAB L501.5600 3.5-5. mmol/L Low 1 K 3.3 LAB L501.5900 98-107 mmol/L Normal CL 104 LAB L501.6100 21.0-3 mmol/L Normal 2.0 CO2 28.0 LAB L501.6200 5-15 Normal GAP 8 Performed By: #### L500.2500, L501.4010 #### [facility] [facility] [place], [address] TROPONIN-I Collected: 06/03/2018 Status: F Source: [place] 9:[address] [facility] REPOSITORY TYPE CODE TESTS RESULT OUT OF RANGE REFERENCE UNITS LAB L501.4010 <0.045 ng/mL Normal < 0.015 TROPONIN-I Result Comment: TROPONIN-I EXPECTED VALUES <0.045 Negative 0.045 - 0.590 Consistent with Cardiac Damage > OR = 0.600 Critical Value Not every elevated troponin is indicative of DE. These values should be used with clinical judgement in examining the patient's clinical picture for diagnosis. To establish a diagnosis of DE versus myocardial injury, there must be a demonstrated rise and/or fall in the troponin values, in addition to ischemic symptoms, EKG changes, new regional wall motion abnormality, and/or angiographical evidence. PLEASE NOTE: REFERENCE RANGES EDITED 17 Performed By: #### L500.2500, L501.4010 #### [facility] [address] [place], [address] MAGNESIUM Collected: 06/03/2018 Status: F Source: [place] 9:[address] [facility] REPOSITORY TYPE CODE TESTS RESULT OUT OF RANGE REFERENCE UNITS LAB L501.5200 1.6-2.6 mg/dL Normal MG 2.3 Performed By: #### L501.5200 #### [facility] [address] [place], [address] CHEST 1 VIEW Observed: 06/03/2018 Status: F Source: [place] (PORTABLE) 9:[address] [facility] REPOSITORY [facility] Imaging Services [address] [place] [address] Chest 1 View (Portable) MR#: [id number] Acct: [id number] Name: NAZARIO GE Rep #: [id number] : 1965 F 52 From: Rafael Jones DO PCP: Johny Jimenez md Status: REG ER Study: Chest 1 View (Portable) Date of Exam: 06/03/18 Exam# [id number] Ordering Dr: Vignesh Bowden MD STUDY: X-RAY CHEST REASON FOR EXAM: Female, 52 years old. Chest pain. TECHNIQUE: Single AP portable view of the chest. COMPARISON: None. FINDINGS: Critelli The lungs are clear and expanded. There is no demonstrated pleural abnormality. Normal size heart. Normal mediastinum and lexie. Normal visualized pulmonary arteries. Normal visualized aortic arch and descending thoracic aorta. The thoracic spine is obscured by the mediastinum. Normal visualized ribs, clavicles, and shoulders. There is no demonstrated abnormality of the visualized soft tissue structures of the upper abdomen. RAD/Chest 1 View (Portable) IMPRESSION: No acute cardiopulmonary disease. Electronically Signed: Rafael Jones DO at 21:49 EDT Tel [phone], Service support , CC: md Johny Jimenez; Vignesh Bowden MD Solar Sales Consultant: Signed ALLERGIES ALLERGIES DATE TYPE / CODE NAME / CODE REACTION SEVERITY SOURCE 08/06/2018 [address] No [address] Unknown [facility] Allergy/4160 Allergies/F00 Hospital 31134(SNOMED [id number](RXNOR Repository CT) M) ENCOUNTERS ENCOUNTERS ADMIT/DISCHARGE ACCOUNT ADMITTING ENCOUNTER LOCATION SOURCE NUMBER CLASS 08/14/2018/08/15/19 [id number] Ambulatory [address] Repository 08/06/2018/08/06/20 [id number] Emergency [address] ing:ED Repository 08/06/2018/08/06/20 [id number] Emergency [address] ing:ED Repository 07/22/2018/07/22/20 [id number] Emergency [address] ing:ED Repository 06/04/2018 [id number] Ambulatory BMSBuilding:[facility] Repository 06/03/2018/06/04/20 [id number] July Gerardo [address] ing:PCURoom: Repository [id number]: 1 06/03/2018 [id number] July Gerardo Ambulatory BMSBuilding:[facility] [place] [facility] Repository 06/03/2018 [id number] July Gerardo Ambulatory BMSBuilding:[facility] [place] [facility] Repository PAYERS PAYERS ENCOUNTER GUARANTOR PAYER SUBSCRIBER SOURCE 08/06/2018 NAZARIO A Primary NAZARIO A [place] [id number] Insurance:LEANDRO RIOSB: [facility] [id number] PLANPolicy Number: Repository [id number]: (359) [id number] (HP) Date:2398-26-71TW [address] [place], [place] [address] [address]JS: 08/06/2018 Secondary NOT GIVENUNK [place] Insurance:SELF PAY [facility] Number: Effective Repository Date:2018-08-06 08/06/2018 NAZARIO A Primary NAZARIO A [place] [id number] Insurance:BUCKEYE REUTTERDOB: [facility] [id number], [place] PLANPolicy Number: Repository [id number]: 330 [id number] (HP) Date:8103-59-82XO [address] [place] [address]NM: 08/06/2018 Secondary NOT GIVENUNK [place] Insurance:SELF PAY [facility] Hospital Number: Effective Repository Date:2018-08-06 07/22/2018 NAZARIO A Primary NAZARIO A [place] [id number] Insurance:BUCKEYE REUTTERDOB: [facility] [id number], [place] PLANPolicy Number: Repository [id number]: 330 [id number] (HP) Date:0949-76-81MN [address] [place] [address] 61353FD: 07/22/2018 Secondary NOT GIVENUNK [place] Insurance:SELF PAY [facility] Hospital Number: Effective Repository Date:2018-07-22 06/04/2018 NAZARIO A Primary NAZARIO A [place] [id number] Insurance:BUCKEYE REUTTERDOB: [facility] [id number] PLANPolicy Number: Repository [id number]: 330 [id number] (HP) Date:3847-30-39DQ [address] [place] [address] 55965FO: 06/04/2018 Secondary NOT GIVENUNK [place] Insurance:SELF PAY [facility] Hospital Number: Effective Repository Date:2018-06-04 06/03/2018 NAZARIO A Primary NAZARIO A [place] [id number] Insurance:BUCKEYE REUTTERDOB: [facility] [id number] PLANPolicy Number: Repository [id number]: 330 [id number] (HP) Date:8930-68-62FS [address] [place] [address] 49501FR: 06/03/2018 Secondary NOT GIVENUNK [place] Insurance:SELF PAY [facility] Hospital Number: Effective Repository Date:2018-06-03 06/03/2018 NAZARIO A Primary NAZARIO A [place] [id number] Insurance:QUINNE REGEOFFREYDOB: [facility] [id number], [place] PLANPolicy Number: Repository [id number]: 330 [id number] (HP) Date:6605-84-85KU [address] [place] [address] 28229FI: 06/03/2018 Secondary NOT GIVENUNK [place] Insurance:SELF PAY [facility] Number: Effective Repository Date:2018-06-03 06/03/2018 NAZARIO A Primary NAZARIO A [place] [id number] Insurance:JASKARANEYE REGEOFFREYDOB: [facility] [id number], [place] PLANPolic Number: Repository [id number]: 330 [id number] (HP) Date:6988-17-23IE [address] [place] [address] 925[address]JI: 06/03/2018 Secondary NOT GIVENUNK [place] Insurance:SELF PAY [facility] Hospital Number: Effective Repository Date:2018-06-03
== END 2018-07-22 22:36 | disposition home or self-care (01) ==
PROVIDERS: Emergency Provider Emergency Medicine; Family Provider Family Medicine; PCP Family Medicine
DX: R07.89 Other chest pain (principal); I10 Essential (primary) hypertension
CPT/HCPCS: 71101; 80048; 84484; 85025; 93005; 99284; A4216

== ENCOUNTER 2018-08-06 12:22 | Emergency (ER) | payer MEDICAID, SELFPAY ==
[2018-08-06 12:23] VITALS: BP 156/114; PULSE 76; RESP 18; TEMP 36.6; O2SAT 100; BMI 28.7
--- NOTE | 2018-08-06 13:36 | ED.DCSUM_ITS ---
- ER Visit Summary Date of Service: 08/06/18 Chief Complaint: Laceration base left thumb History of Present Illness: The patient is a 53 F who is right-hand dominant presents a laceration that is 1.5 cm base of the left thumb volar surface. This occurred 2 hours prior to presentation. She denies paresthesia, anesthesia motors. She has no other complaints. Physical Examination: 1.5 cm laceration. Patient is able to AB duct, 80 duct, flex and extend the left thumb. Two-point determination normal. Capillary refill is normal. No other evidence of trauma. There is no point bone tenderness. Test Results: None Emergency Department Course and Treatment: Clean wound and Dermabond after discussion regarding options Treatment Plan: Dermabond Disposition: Appropriate home-going instructions, stable and improved Impression: 1.5 cm laceration left thumb This note was generated with [employer] dictation software. It may contain incorrect words, spelling, and punctuation that were not noted in review of the chart prior to signing ED Disposition - Plan for ED Patient: Disposition: Home or Assisted Living Chief Complaint: Laceration Instructions: ED Laceration Ext Skin Glue Referrals: Johny Jimenez [Primary Care Provider] - As Needed
== END 2018-08-06 13:52 | disposition home or self-care (01) ==
PROVIDERS: Emergency Provider Emergency Medicine; Family Provider Family Medicine; PCP Family Medicine
DX: S61.012A Laceration without foreign body of left thumb without damage to nail, initial encounter (principal); W45.8XXA Other foreign body or object entering through skin, initial encounter; Y93.9 Activity, unspecified; Y92.9 Unspecified place or not applicable; Y99.9 Unspecified external cause status
CPT/HCPCS: 12001; 99282

== ENCOUNTER 2018-08-06 18:09 | Emergency (ER) | payer MEDICAID, SELFPAY ==
[2018-08-06 12:23] VITALS: BMI 28.7
[2018-08-06 18:09] VITALS: BP 155/105; PULSE 80; RESP 16; TEMP 36.6; O2SAT 100; BMI 28.4
--- NOTE | 2018-08-06 20:12 | ED.VISSUMM ---
- ER Visit Summary Date of Service: 08/06/18 Chief Complaint: Left thumb laceration History of Present Illness: The patient is a 53 F who presents with a left thumb laceration. She was seen here earlier today after she cut her thumb trying to cut a croissant. The ED physician at that time repaired with skin glue. However it opened up when she got home. She denies any bleeding at this time. Physical Examination: Vital signs reviewed. There is a 1.5 cm laceration on the base of the left thumb on the palm side. There is no bleeding at this time Test Results: None performed Emergency Department Course and Treatment: Patient had laceration repair. 1 cc lidocaine was used to anesthetize the area. 2, 4?0 simple nylon sutures were placed. She will have these out in 7-10 days Treatment Plan: [] Disposition: Discharge Impression: Left thumb laceration, 1.5 cm Laceration repair This note was generated with [employer] dictation software. It may contain incorrect words, spelling, and punctuation that were not noted in review of the chart prior to signing ED Disposition - Plan for ED Patient: Disposition: Home or Assisted Living Chief Complaint: Laceration Instructions: ED Laceration All Referrals: Johny Jimenez [Primary Care Provider] -
== END 2018-08-06 20:29 | disposition home or self-care (01) ==
PROVIDERS: Emergency Provider Emergency Medicine; Family Provider Family Medicine; PCP Family Medicine
DX: S61.012A Laceration without foreign body of left thumb without damage to nail, initial encounter (principal); W45.8XXA Other foreign body or object entering through skin, initial encounter; Y93.9 Activity, unspecified; Y92.9 Unspecified place or not applicable; Y99.9 Unspecified external cause status
CPT/HCPCS: 12001; 99282; 99283

== ENCOUNTER 2018-11-06 11:09 | Emergency (ER) | payer MEDICAID, SELFPAY ==
[2018-11-06 11:10] VITALS: BP 172/102; PULSE 80; RESP 16; TEMP 37.1; O2SAT 98; BMI 30.9
--- NOTE | 2018-11-06 11:17 | EKG12_ITS ---
Test Reason : SYNCOPE Blood Pressure : / mmHG Vent. Rate : 068 BPM Atrial Rate : 068 BPM P-R Int : 134 ms QRS Dur : 086 ms QT Int : 406 ms P-R-T Axes : 050 -10 039 degrees QTc Int : 431 ms Normal sinus rhythm Possible Left atrial enlargement Borderline ECG Confirmed by JAMIE GOMEZ, JAIRO ([id number]), video tape editor LESLIE RAMIREZ ([id number]) on 11/10/2018 2:12:47 PM Referred By: GEOFFREY Confirmed By:JAIRO AYALA MD
[2018-11-06 12:16] VITALS: BP 146/102; PULSE 66; RESP 15; O2SAT 98
[2018-11-06 12:44] VITALS: BP 133/71; PULSE 69; RESP 16; O2SAT 99
[2018-11-06 13:14] VITALS: BP 145/99; PULSE 64; RESP 16; O2SAT 99
--- NOTE | 2018-11-06 13:59 | ED.VIS.GEN ---
History of Present Illness Chief Complaint: Syncope Informant: Patient Onset: Today Context: Sudden Onset Timing: Intermittent Quality: After rising from sitting position patient passed out Location: Not applicable Current Severity: None Maximum Severity: Moderate Worsened by: Lightheadedness after rising from sitting position Relieved by: Lying on the floor Associated Symptoms: Nausea, diaphoresis, pallor tunnel vision Narrative: Patient is a middle-aged woman who states she was sitting for period of time. She stood up and when she began to walk she became lightheaded, nauseous, tunnel vision and passed out. Prior similar symptoms: No Recent Illness/Hospitalization: No - Past Medical History (1) Chest pain Status: Acute (2) HTN (hypertension) Status: Chronic Past Medical History - Allergies and Home Meds Allergies/Adverse Reactions: Allergies No Known Allergies Allergy (Verified 11/06/18 11:13) Primary Care Physician: Johny Jimenez [Primary Care Provider] - Prior records reviewed: Yes Surgical History: appendectomy Lives: Spouse/ Significant Other Smoking Status: Never smoker Alcohol: None Drugs: None - Family History Maternal Family History: Reports: - - Patient denies any marked maternal or paternal family history including heart disease, diabetes, high cholesterol. She does note a maternal uncle with history of stroke. Paternal Family History: Reports: - - Patient denies any marked maternal or paternal family history including heart disease, diabetes, high cholesterol. Review of Systems General: Denies: Chills, Fever, Sweats Eyes: Denies: Visual changes - bilaterally, Blurred Vision - bilaterally, Diplopia ENT: Denies: Rhinorrhea, Sore throat Cardiovascular: Denies: Chest pain, Palpitations Respiratory: Denies: Dyspnea, Cough, Dyspnea on exertion Gastrointestinal: Denies: Abdominal pain, Nausea, Vomiting, Diarrhea, Melena, Hematochezia Genitourinary: Denies: Dysuria, Hematuria, Frequency Musculoskeletal: Denies: Back pain, Extremity Pain Skin: Denies: Rash, Wounds Neurological: Denies: Headache, Weakness, Numbness Allergy: Denies: Uticaria, Swelling of the mouth, Swelling of the tongue Physical Exam Vital Signs/Narrative: Vital Signs Temp Pulse Resp BP Pulse Ox 11/06/18 13:14 64 16 145/99 H 99 11/06/18 12:44 69 16 133/71 H 99 11/06/18 12:16 66 15 146/102 H 98 11/06/18 11:10 98.7 F 80 16 172/102 H 98 Inital Vital Signs reviewed: Yes General: Well nourished, Well developed, No Acute Distress Head: Normocephalic, Atraumatic Eyes: Perrl, EOMI ENT: Moist mucous membranes, No rhinorrhea Neck: Supple, Nontender Cardiovascular: Regular rate, Regular rhythm, No murmurs, Normal S1, Normal S2 Respiratory: No distress, CTA bilaterally, Chest nontender Abdomen: Soft, Nontender, Nondistended, Normal bowel sounds, No masses. Negative for: Hepatomegaly, Splenomegaly, Mass, Pulsatile mass Back: Nontender, Normal Inspection Extremities: Nontender, No edema Skin: Normal color, No rash Neurological: Alert, Oriented x3, Cranial nerves II-XII grossly intact, Normal Strength, Normal Sensation Psychological: Normal affect, Normal Mood Diagnostic/Tx/Re-eval - Rhythm Strip Rhythm Strip: Sinus Rhythm Rate: 72 Ectopy: None - 72 - EKG Initial EKG Interpretation: Sinus Rhythm - Ventricular rate 68. OR interval, QRS duration, QT interval and axis are normal. EKG is normal. - Medical Decision Making Patient's history and EKG are normal. Patient's history is consistent with vasovagal syncopal episode. Since her neuro exam is normal and EKG is normal will discharge home with appropriate home-going instructions. ED Disposition - Plan for ED Patient: Disposition: Home or Assisted Living Diagnosis: Vasovagal syncope Instructions: ED Syncope Vasovagal Referrals: Johny Jimenez [Primary Care Provider] - As Needed
[2018-11-06 14:08] VITALS: BP 140/80; PULSE 68; RESP 17; O2SAT 99
== END 2018-11-06 14:30 | disposition home or self-care (01) ==
PROVIDERS: Emergency Provider Emergency Medicine; Family Provider Family Medicine; PCP Family Medicine
DX: R55 Syncope and collapse (principal); I10 Essential (primary) hypertension; R07.9 Chest pain, unspecified
CPT/HCPCS: 93005; 99285

== ENCOUNTER 2018-12-14 17:27 | Emergency (ER) | payer MEDICAID, SELFPAY ==
[2018-12-14 17:30] VITALS: BP 161/93; PULSE 79; RESP 17; TEMP 36.8; O2SAT 100; BMI 28.8
--- NOTE | 2018-12-14 17:39 | RAD_ITS ---
STUDY: X-RAY - LEFT WRIST REASON FOR EXAM: Female, 53 years old. Left wrist pain, fall TECHNIQUE: 3 view(s) of the wrist were obtained. COMPARISON: None. FINDINGS: Nondisplaced transverse fracture of the distal radius with a longitudinal component extending to the radial articular surface. Nondisplaced transverse fracture of the base of the ulnar styloid is also noted. Normal radiocarpal articulation. Normal distal radioulnar articulation. Normal carpal bones. Normal carpal articulations. Normal carpometacarpal articulation of the thumb. Normal second through fifth carpometacarpal articulations. Normal visualized metacarpal bones. Mild soft tissue swelling of the wrist. RAD/Wrist min 3 Views IMPRESSION: 1. Nondisplaced distal radial fracture with articular surface involvement. 2. Ulnar styloid fracture. Electronically Signed: Jordan Gonzalez MD at 18:11 EDT , Service support ,
--- NOTE | 2018-12-14 18:05 | ED.DCSUM_ITS ---
- ER Visit Summary Date of Service: 12/14/18 Chief Complaint: [Injury to left wrist] History of Present Illness: The patient is a 53 F [presents the emergency department after sustaining an injury to her left wrist today. Patient states that she was in the garage trying to move a mower when she slipped and fell onto her buttocks and she tried to brace herself with her left arm. Patient complains of left wrist pain. Patient is right-hand dominant. She denies any other injuries.] Physical Examination: [HEENT-PERRLA, EOMI. Cranial nerves II through XII grossly intact. TMs clear. Mucous membranes moist. No adenopathy. Cardiovascular-regular rate and rhythm without murmur or ectopy Lungs-clear to auscultation, chest wall stable without crepitus or subcu emphysema Abdomen-normoactive bowel sounds, soft, nontender, no rebound or rigidity, no peritoneal signs. Extremities-intact ?4, normal range of motion, normal pulses. Left wrist- patient has obvious soft tissue swelling and mild deformity noted. He has decreased range of motion secondary to pain and swelling. Neurovascular intact distally. No open areas noted. No pain at the elbow.] Test Results: [X-rays of the left wrist were obtained showed a fracture of the ulnar styloid and distal radius that is intra-articular. Fracture is nondisplaced but it is impacted.] Emergency Department Course and Treatment: [She was placed in a volar splint. Patient refused any pain medication.] Treatment Plan: [Patient will be given a sling and a prescription for [place] and referral to orthopedics for follow-up] Disposition: [Discharged home in stable condition] Impression: [Left distal radius fracture and ulnar styloid fracture] This note was generated with [employer] dictation software. It may contain incorrect words, spelling, and punctuation that were not noted in review of the chart prior to signing ED Disposition - Plan for ED Patient: Referrals: Johny Jimenez [Primary Care Provider] -
--- NOTE | 2018-12-14 18:26 | ED.DEP ---
ED Disposition - Plan for ED Patient: Instructions: ED Fx Colles Wrist No Redu Requ Prescriptions: Hydrocodone Bitart/Apap 5-325 [[place] 5MG-325MG] 1 tab PO Q4H PRN PRN 3 Days #20 tab PRN Reason: Pain Referrals: Johny Jimenez [Primary Care Provider] - Peter Domingo MD [STAFF PHYSICIAN] - 3-5 Days
[2018-12-14] MEDS: HYDROcodone Bitartrate/Apap 5/325 Tablet PO (18:42)
== END 2018-12-14 18:44 | disposition home or self-care (01) ==
LOC: ED 17:44
PROVIDERS: Emergency Provider Emergency Medicine; Family Provider Family Medicine; PCP Family Medicine
DX: S52.572A Other intraarticular fracture of lower end of left radius, initial encounter for closed fracture (principal); S52.615A Nondisplaced fracture of left ulna styloid process, initial encounter for closed fracture; W01.0XXA Fall on same level from slipping, tripping and stumbling without subsequent striking against object, initial encounter; Y93.9 Activity, unspecified; Y92.008 Other place in unspecified non-institutional (private) residence as the place of occurrence of the external cause; Y99.9 Unspecified external cause status
CPT/HCPCS: 29125; 73110; 99283

== ENCOUNTER 2018-12-22 20:23 | Emergency (ER) | payer MEDICAID, SELFPAY ==
[2018-12-22 20:24] VITALS: BP 105/68; PULSE 87; RESP 14; TEMP 36.7; O2SAT 100; BMI 31.3
--- NOTE | 2018-12-22 21:35 | ED.DCSUM_ITS ---
- ER Visit Summary Date of Service: 12/22/18 Chief Complaint: Tingling in the left forearm History of Present Illness: The patient is a 53 F who presents for tingling in her left forearm. 1 week ago patient broke her distal radius and ulna. The following day she had a cast placed by Dr. Domingo. Patient states that since she fractured it she has had occasional tingling sensations in the forearm and a chilling sensation that goes through the forearm. This is been going on all week and has been increased today. Patient also feels like she is pinching something between her thumb and forefinger, although there is nothing but air between them. She denies any increased pain. She is taking Aleve for pain as needed. She has no other complaints at this time. Physical Examination: Patient is afebrile and hemodynamically stable. Well-nourished well-developed sitting in bed in no distress. Patient has a purple cast on the forearm, which I can easily place a finger underneath that each distal and proximal point. Fingers are mildly edematous with brisk cap refill in all fingers. Sensation is intact all dermatomes. Patient is able to wiggle all fingers. Fingers are warm and symmetric in temperature with the other hand. No discoloration. Test Results: [] Emergency Department Course and Treatment: Patient was discussed with Dr. Prince Dunn, and based on her having good sensation, motor function, color, temperature in the distal extremity, he agreed that her symptoms are most likely benign. He recommended patient call Dr. Domingo's office first thing in the morning to arrange for a follow-up appointment. He also recommended she continue to ice and elevate the arm. This was discussed with the patient and she was reassured that there is no concerning issue with her intermittent tingling sensation and chills in the forearm. She will return if any worsening of her condition. Patient discharged home. Treatment Plan: [] Disposition: [] Impression: History of left forearm fracture, paresthesia of the left forearm, cast check This note was generated with BandPageation software. It may contain incorrect words, spelling, and punctuation that were not noted in review of the chart prior to signing ED Disposition - Plan for ED Patient: Disposition: Home or Assisted Living Instructions: Discharge Instructions: Splint Care Referrals: Johny Jimenez [Primary Care Provider] - Peter Domingo MD [STAFF PHYSICIAN] - 1 Day for another exam Additional Instructions: Please follow-up with Dr. Domingo tomorrow if you continue to have increase in the tingling and chills sensation in your arm under the cast. If at any time you have a change in color, temperature, lose sensation, or have extreme pain in the hand or arm, return immediately to the emergency department for another evaluation.
== END 2018-12-22 22:01 | disposition home or self-care (01) ==
PROVIDERS: Emergency Provider Emergency Medicine; Family Provider Family Medicine; PCP Family Medicine
DX: R20.2 Paresthesia of skin (principal); S52.92XD Unspecified fracture of left forearm, subsequent encounter for closed fracture with routine healing; S52.202D Unspecified fracture of shaft of left ulna, subsequent encounter for closed fracture with routine healing; X58.XXXD Exposure to other specified factors, subsequent encounter
CPT/HCPCS: 99282

== ENCOUNTER 2019-05-20 18:30 | Outpatient (RCR) | payer BC, MEDICAID, SELFPAY ==
--- NOTE | 2019-01-29 17:58 | HP.OTEVAL_ITS ---
Patient's Visit Information NAZARIO GE is a 53 year old F, referred to Occupational Therapy by Peter Domingo MD, with a diagnosis of inartic fx of low end of radius, routine heal; Disp fx of L ulna styloid. Date of Evaluation: 01/29/19 Occupational Therapist: Natacha Ho, OTR/L - Subjective Subjective: Pat arrived as referral from Dr. Jimenez. She noted December 14 she fell at home and fracture radius and displaced ulna. 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 She noted routine heal with cast placement for 5 weeks. Cast removal was a week ago and she is 6 weeks out of fracture. - ADLs Dressing: Underwear, Bra, Overhead shirt, Button shirt, Pants, Socks, Shoes Fasteners: Tie shoes, Buttons Eating: Use silverware, Cut food Bathing: Handle washcloth & soap, Wash hair, Squeeze shampoo bottle Toileting: Manage clothing Kitchen: Chop with knife, Peel fruits & vegetables, Open jars, Open bottle caps, Pour from pitcher, Load/unload cancer researcher, Place dish in microwave Comments: one handed techniques for all. Household: Laundry Yard: Mow lawn, [place], Use pruners, Use trowel Comments: gardening 1x handed - Pain Left Wrist 3 Pain Intensity Range: 3, 5 - Objective Concerns: Some shininess of skin noted; will monitor for RSD. - ROM Wrist: flexion R 0-79, L 0-23; ext. R 0-44, L 0-13 MP: R WFL, L 0-28 IP: R WFL, L -5- 30 MP: R WFL; L 2nd 9-64, 3rd 0-65, 4th 0-71, 5th 0-64 ROM Comments: Able to complete loose composite fist with1 cm from MF and palm. - Strength C Wpf Developer: R 74, L 3 lbs Lateral Pinch: R 19, L 2 lbs Tripod Pinch: R 19, L 2 lbs Tip-to-Tip Pinch: R 15, L 2 lbs Strength Comments: increased weakness and limited ROM noted with L hand. - Edema Proximal Phalanx: IF R 6.8, L 7.0 cm; MF R 7.0, L 7.5 cm - Sensation Sensation Comments: noted that she often does not have increased numbness and tingling but sometime will have tingling of thumb and index finger around web space and radial nerve innervation. - In-Hand Manipulation Finger to Palm Translation: Normal - Right, Severe - Left Palm to Finger Translation: Normal - Right, Severe - Left Shift: Normal - Right, Severe - Left Rotation: Normal - Right, Severe - Left - Quick DASH-Disab of Arm,Shoulder& Hand Quick DASH Score: 75.0000 - Goals Goal:: Pat to increased L chief science officer by 25-30 lbs to promote increased chief science officer need for ADL/IADls which include exceptional children teacher assistant 4/5 trials 80% of the time by d/c. Goal:: Pat to increased ROM of L hand to 60% of R dominant hand topromote increased strength and mobility needed fro ADL/IADLs by end of d/c. Goal:: Pat to have not more than 1-2/10 pain for daily tasks 4/5 trials 80% of the time to promote returning to PLOF by d/c. Goal:: Pat to increased ability to complete in ahdn manipulation skills with L hand 4/5 trials 80% of the time to promote increased manipulation of small items by d/c. Goal:: Pat to completed edema management techniques to monitor and decrease any increased swelling of L hand during ADL/IAdls 4/ 5trials 80% of the time by d/c. Goal:: Pat to return to (I0 with all ADLs for B ahnd control for all self- care tasks for example cutting food, washing dishs, dressing etc. 4/ 5 trials 80% of the time by end of d/c. Goal:: Pat to complete daily HEP to promote ROM, Strength, and returning to PLOF with all ADL/IADls 4/5 trials 80% of the time by d/c. - Rehabilitation General Assessment: Nely arrived for OT evaluation on this date of 01/29/19. Pat noted injury occured on January 03 of this year and she was casted for five weeks with cast removal last week. She is currently 6 weeks out of fracture and she reports x-rays show close to completed healing of bones. Nely exhibits significantly limited ROM and strength of affected L hand and wrist. She exhibited increased pain with movements due to stiffness. Some minimal edema noted throughout fingers and hand which is likely due to lack of mobility. Pat would benefit from further skilled OT services for 2-3x weekly appointment for the next 4-6 weeks. Rehabilitation Potential: Good - Anticipated Interventions Anticipated Interventions: A/AAROM/PROM, Strengthening, Edema Control, Modalities, Orthoses, Joint Protection/Energy Conservation, Ergonomic Education, Dynamic Sitting Balance, Fine Motor Coord/Quang, Cognitive Skills, ADL Training, Caregiver Training, Home Program - Visit Plan Frequency: 2-3x /Week Duration: 4-6 Weeks General Plan: Pat to complete weekly OT to promote increased ROM, Strength, in hand manipulation skills, ADLs, UE strength, dexerity and ergonomic training to promote returning to PLOF by d/c. TEXT: Thank you for the opportunity to evaluate your patient. For Medicare and Medicare HMO plans, please review the plan of care and approve it. It will need to be FAXED BACK to us at [phone] for Medicare purposes. Please let me know if there are questions or concerns regarding this plan of care. Physician Signature: Date:
--- NOTE | 2019-02-25 19:05 | HP.OTREVAL ---
Peter Domingo MD, It has been my pleasure to treat NAZARIO GE over the last 5 visits for inartic fx of low end of radius, routine heal; Disp fx of L ulna styloid. Please see the progress note below for an update on the occupational therapy plan of care! Subjective: Arrived and noted that wrist and thumb are stiff and awkward feeling but feels both are progressing and she noted she can now wear rings and complete more work-related tasks. Feels about 50% improvement. Objective/Function: Completed measurements on this 02/25/19 post parafin. Results are as follows: ROM. Wrist. - flexion: L 0-45. - extension: 0-39. - supination: L 0-72. - pronation: L WFL. Thumb. - opposition: L 0-36. - radial abduction: L 0-45. - MP: L -11-0-53. - IP: L -30-0-41. Strength: - humidifier maintenance worker: R 85, L 25. - lateral: R 20, L 9. - tripod: R 18, L 8. - pincer: R 17, L 7. 9 hole pegboard test: R: 18.40 s. L: 20.31 Plan Frequency: 2x /Week Duration: 4 Weeks Visits in this POC: 15 Plan: continue POC. Will continue for 2x weekly appointments for next 4 weeks. Completed reassessment for progress report for Doctor appointment tomorrow. talked to her of static splinting options and she is to discuss with doctor. She has progressed nicely since initial evaluation but remains very limited with left wrist and hand and further skilled OT warranted for strength, ROM, and returning to fx use of L hand for work and ADLs. Goals - Goals Goal:: Pat to increased L humidifier maintenance worker by 25-30 lbs to promote increased humidifier maintenance worker need for ADL/IADls which include child protective investigator 4/5 trials 80% of the time by d/c. Goal:: Pat to increased ROM of L hand to 60% of R dominant hand topromote increased strength and mobility needed fro ADL/IADLs by end of d/c. Goal:: Pat to have not more than 1-2/10 pain for daily tasks 4/5 trials 80% of the time to promote returning to PLOF by d/c. Goal:: Pat to increased ability to complete in dn manipulation skills with L hand 4/5 trials 80% of the time to promote increased manipulation of small items by d/c. Goal:: Pat to completed edema management techniques to monitor and decrease any increased swelling of L hand during ADL/IAdls 4/ 5trials 80% of the time by d/c. Goal:: Pat to return to (I0 with all ADLs for B ahnd control for all self- care tasks for example cutting food, washing dishs, dressing etc. 4/ 5 trials 80% of the time by end of d/c. Goal:: Pat to complete daily HEP to promote ROM, Strength, and returning to PLOF with all ADL/IADls 4/5 trials 80% of the time by d/c. Anticipated Interventions Anticipated Interventions: A/AAROM/PROM, Strengthening, Edema Control, Modalities, Orthoses, Joint Protection/Energy Conservation, Ergonomic Education, Dynamic Sitting Balance, Fine Motor Coord/Quang, Cognitive Skills, ADL Training, Caregiver Training, Home Program Please do not hesitate to contact me at [phone] by phone or if you have questions or concerns regarding this new plan of care! Sincerely, Natacha Ho, JOCELINER/L
--- NOTE | 2019-04-22 19:05 | HP.OTREVAL ---
Peter Domingo MD, It has been my pleasure to treat NAZARIO GE over the last 12 visits for inartic fx of low end of radius, routine heal; Disp fx of L ulna styloid. Please see the progress note below for an update on the occupational therapy plan of care! Subjective: Arrived and noted last two weeks had to cancel due to working late. Notes L wrist stiff and sore. Objective/Function: Reassessment completed as break from therapy. Results as follows: ROM: - flexion: R WFL, L 0-56. - extension: R WFL, L 0-45. -. Rim Turning Machine Operator R 76, L 43. Lateral R 18, L 12. tripod R 16, L 10. pincer R 10, L 9. Some stiffness with pronation but able to complete in functional manner. Plan Frequency: Every Other Week Duration: 6 Weeks Visits in this POC: 15 Plan: continue pOC. She will follow up every other week for 6 weeks for a total of three appointments. She is to get insurance info to front and OT working on getting her Stat a Dyne splint to increased ROM needed for ADL/IADls. Goals - Goals Goal:: Pat to increased L biometric technician by 25-30 lbs to promote increased biometric technician need for ADL/IADls which include child daycare worker 4/5 trials 80% of the time by d/c. Goal:: Pat to increased ROM of L hand to 60% of R dominant hand topromote increased strength and mobility needed fro ADL/IADLs by end of d/c. Goal:: Pat to have not more than 1-2/10 pain for daily tasks 4/5 trials 80% of the time to promote returning to PLOF by d/c. Goal:: Pat to increased ability to complete in ahdn manipulation skills with L hand 4/5 trials 80% of the time to promote increased manipulation of small items by d/c. Goal:: Pat to completed edema management techniques to monitor and decrease any increased swelling of L hand during ADL/IAdls 4/ 5trials 80% of the time by d/c. Goal:: Pat to return to (I0 with all ADLs for B ahnd control for all self- care tasks for example cutting food, washing dishs, dressing etc. 4/ 5 trials 80% of the time by end of d/c. Goal:: Pat to complete daily HEP to promote ROM, Strength, and returning to PLOF with all ADL/IADls 4/5 trials 80% of the time by d/c. Tendon Goals: Improvement in sensation documented by [place] monofiliaments Anticipated Interventions Anticipated Interventions: A/AAROM/PROM, Strengthening, Edema Control, Modalities, Orthoses, Joint Protection/Energy Conservation, Ergonomic Education, Dynamic Sitting Balance, Fine Motor Coord/Quang, Cognitive Skills, ADL Training, Caregiver Training, Home Program Please do not hesitate to contact me at [phone] by phone or if you have questions or concerns regarding this new plan of care! Sincerely, Natacha Ho, OTR/L
--- NOTE | 2019-07-30 09:03 | HP.OTDCSUM ---
HP - OT D/C Summary It has been my pleasure to treat LUH DAVISON under orders from Peter Domingo MD, for the diagnosis of inartic fx of low end of radius, routine heal; Disp fx of L ulna styloid for a total of 14 visit(s). Please see the following information for a summary of their discharge status. - Overall Improvement % Improvement: 50 - Objective Objective/Function: progressing with resistance with all tasks. Measurements: ROM. Wrist. - flexion R WFL, L 0-45. - ext R WFL, L 0-47. Thumb. opposition: R WFL< L 0-26. MP R WFL L -25-0-37. IP R WFL, -28-0-53. Strength: ruling technician R 78, L 60. lateral R 16, L 15. tripod R 18, L 14. pincer R 15, L 10 - Goals Patient Goals: Regain Mobility, Regain Strength, Decrease Pain, Return to Work, Decrease Swelling/Stiffness, Improve Fine Motor Skills, Use Hand/Wrist/Arm Normally Again, Sleep Better, Increase ROM, Be More Independent in ADLS, Resume Former Household Responsibilities (Cooking,Cleaning,Yard, etc.), Resume Hobbies Goal:: Pat to increased L ruling technician by 25-30 lbs to promote increased ruling technician need for ADL/IADls which include school child care attendant 4/5 trials 80% of the time by d/c. Goal:: Pat to increased ROM of L hand to 60% of R dominant hand topromote increased strength and mobility needed fro ADL/IADLs by end of d/c. Goal:: Pat to have not more than 1-2/10 pain for daily tasks 4/5 trials 80% of the time to promote returning to PLOF by d/c. Goal:: Pat to increased ability to complete in ahdn manipulation skills with L hand 4/5 trials 80% of the time to promote increased manipulation of small items by d/c. Goal:: Pat to completed edema management techniques to monitor and decrease any increased swelling of L hand during ADL/IAdls 4/ 5trials 80% of the time by d/c. Goal:: Pat to return to (I0 with all ADLs for B ahnd control for all self- care tasks for example cutting food, washing dishs, dressing etc. 4/ 5 trials 80% of the time by end of d/c. Goal:: Pat to complete daily HEP to promote ROM, Strength, and returning to PLOF with all ADL/IADls 4/5 trials 80% of the time by d/c. - Plan Plan: Luh opted out of stat-a-dyne splinting due to out of pocket cost. She progressed nicely with OT and will be d/c'd on this date. - D/C Information If there are questions or concerns regarding this patient's occupational therapy, please fell free to call me at [phone]. Thank you for the referral of this patient. Sincerely, Natacha Ho, OTR/L
== END 2019-05-20 19:00 | disposition home or self-care (01) ==
LOC: OT 18:30
PROVIDERS: Family Provider Family Medicine; PCP Family Medicine; Referring Provider Specialist; Visit Provider Specialist
DX: S52.572D Other intraarticular fracture of lower end of left radius, subsequent encounter for closed fracture with routine healing (principal); S52.612D Displaced fracture of left ulna styloid process, subsequent encounter for closed fracture with routine healing
CPT/HCPCS: 97035; 97110; 97140; 97166; 97168; 97530

== ENCOUNTER → 2019-07-10 14:48 | Outpatient (CLI) | payer BC, SELFPAY ==
--- NOTE | 2019-07-10 14:52 | ECHOD_ITS ---
Reason For Study: Murmur Procedure This was a 2D Doppler, Color Flow transthoracic echocardiogram. Exam performed in department. Left Ventricle Normal LV size. Moderate concentric left ventricular hypertrophy. Left ventricular systolic function is normal. The estimated ejection fraction is 65 %. No regional wall motion abnormalities noted. Right Ventricle Normal RV size. Normal systolic function. Atria Normal left atrium. Normal right atrium. Mitral Valve Normal mitral valve. Tricuspid Valve Normal tricuspid valve. Aortic Valve Normal aortic valve. Pulmonic Valve Normal pulmonic valve. Great Vessels Normal aortic root. The pulmonary artery is normal size. Normal inferior vena cava. Pericardium/Pleural No pericardial effusion. MMode/2D Measurements & Calculations LVIDd: 4.3 cm IVSd: 1.6 cm LA dimension: 3.9 cm LVIDs: 2.3 cm LVPWd: 1.2 cm RVDd: 3.5 cm FS: 45.8 % LAV(MOD-bp): 52.1 ml LA A4 area: 18.0 cm2 RA A4 area: 11.7 cm2 LAV(MOD-bp) Indexed: 24.7 ml/m2 LAV(MOD-sp2): 59.9 ml LAV(MOD-sp4): 45.4 ml Time Measurements MV dec time: 0.30 sec Doppler Measurements & Calculations MV E max cortez: 86.0 cm/sec Lat Peak E' Cortez: 10.3 cm/sec Med Peak E' Cortez: 9.0 cm/sec MV A max cortez: 109.1 cm/sec E/E' lat: 8.3 E/E' med: 9.5 MV E/A: 0.79 MV V2 max: 111.1 cm/sec MV P1/2t max cortez: 94.4 cm/sec Ao V2 max: 162.8 cm/sec MV max P.9 mmHg MV P1/2t: 110.9 msec Ao max P.6 mmHg MV V2 mean: 63.4 cm/sec MV dec slope: 249.4 cm/sec2 MV mean P.9 mmHg MVA(P1/2t): 2.0 cm2 MV V2 VTI: 33.0 cm LV V1 max: 136.3 cm/sec PA V2 max: 114.5 cm/sec LV V1 max P.4 mmHg Interpretation Summary Normal LV size. Left ventricular systolic function is normal. The estimated ejection fraction is 65 %. Moderate concentric left ventricular hypertrophy. Structurally normal valves. Ordering Physician: KAI YOON Referring Physician: [facility] Doctor, Out of Performed By: Marco Antonio Flynn RCS
== END ==
PROVIDERS: Family Provider Family Medicine; PCP Family Medicine
DX: I35.8 Other nonrheumatic aortic valve disorders (principal)
CPT/HCPCS: 93306

== ENCOUNTER → 2019-08-07 10:49 | Outpatient (REF) | payer BC, SELFPAY ==
[2019-08-03 15:05] VITALS: BMI 34.3
== END ==
LOC: CVS 10:49
PROVIDERS: Family Provider Family Medicine; PCP Family Medicine; Referring Provider Specialist; Visit Provider Specialist
DX: R42 Dizziness and giddiness (principal)
CPT/HCPCS: 93270